=== PATIENT | male | born 1945 | race Caucasian/White ===

== ENCOUNTER 2016-07-02 13:32 | Observation (INO) ==
[2016-07-02] MEDS ORDERED: Aspirin 81 MG TAB.CHEW PO ONE (13:34)
[2016-07-02 14:01] LABS: Basophils % 0.6 %; Eosinophils # 0.1 K/mcL (0.0-0.6); Eosinophils % 2.7 %; Hematocrit 38.5 % (37.5-50.1); Hemoglobin 12.1 g/dL (12.9-16.9); Immature Granulocytes % 0.4 % (0-4); Lymphocytes # 1.7 K/mcL (0.6-4.6); Lymphocytes % 34.2 %; Mean Corpuscular HGB Conc 31.4 g/dL (31.6-35.5); Mean Corpuscular Hemoglobin 26.5 pg (28.0-33.3); Mean Corpuscular Volume 84.4 fL (83.0-100.0); Mean Platelet Volume 10.6 fL (9.4-12.4); Monocytes # 0.3 K/mcL (0.0-1.3); Monocytes % 6.8 %; Neutrophils # 2.7 K/mcL (1.6-8.9); Platelet Count 239 K/mcL (140-400); Red Blood Count 4.56 M/mcL (4.19-5.50); Red Cell Distribution Width 14.3 % (11.5-14.5); Segmented Neutrophils % 55.3 %
[2016-07-02 14:15] LABS: BUN/Creatinine Ratio 11 (6-26); Blood Urea Nitrogen 11 mg/dL (8-26); Calcium 9.3 mg/dL (8.6-10.8); Carbon Dioxide 22 mEq/L (19-29); Chloride 107 mEq/L (98-109); Glucose 178 mg/dL (70-99); Osmolality,Calculated 292 (280-300); Potassium 4.4 mEq/L (3.5-4.5); Sodium 139 mEq/L (136-145); eGFR For African Americans > 60 (> 60); eGFR For Non-African Americans > 60 (> 60)
--- NOTE | 2016-07-02 14:17 | Emergency Department Note ---
Disposition Clinical Impression: Chest pain Disposition: Admitted As Inpatient Condition: Fair Time of Disposition: 15:36 Chest Pain HPI - General Chief Complaint: ED Chest Pain Stated Complaint: chest pain Time Seen by Provider: 07/02/16 13:34 Source: patient Limitations: no limitations Vital Signs Reviewed: Yes Nursing Notes Reviewed: Yes - History of Present Illness HPI Narrative: Patient is a 70-year-old male who presents to [facility] ED with a chief complaint of central substernal chest pain. States his symptoms started around noon today. Describes as a heavy feeling. States it continued until he was given a nitroglycerin tablet by EMS and his chest pain resolved within a few minutes. Admits to some nausea, no vomiting. Denies any prior heart attack though he did have 3 stents placed back in 2012. He last had a stress test approximately 6 months ago and states that looked good. Patient does have a history of type 2 diabetes on metformin, hypertension, hyperlipidemia. Patient is asymptomatic at this time and states he would like to go home. Pt complaint: chest pain Onset (ago): hour(s) Duration: constant Onset: during rest Pain Location: substernal Severity: none Severity scale (1-10): 0 Quality: tightness Pain Radiation: none Improves with: nitroglycerin Worsens with: nothing Associated symptoms: Denies: vomiting, diaphoresis, dyspnea Treatments prior to arrival chest pain: aspirin, nitroglycerin, oxygen - Related Data Home Medications Medication Instructions Recorded Confirmed Acetaminophen [Tylenol] 1,000 mg PO BID 10/23/15 07/02/16 Amlodipine [Norvasc] 5 mg PO DAILY 10/23/15 07/02/16 Aspirin [Adult Low Dose Aspirin EC] 81 mg PO DAILY 10/23/15 07/02/16 Budesonide/Formoterol 160/4.5 2 puff IH BID 10/23/15 07/02/16 [Symbicort 160/4.5] Cetirizine HCl [Zyrtec] 10 mg PO DAILY 10/23/15 07/02/16 Doxazosin [Cardura] 4 mg PO DAILY 10/23/15 07/02/16 Furosemide [Lasix] 40 mg PO DAILY 10/23/15 07/02/16 Glimepiride [Amaryl] 1 mg PO DAILY 10/23/15 07/02/16 Lisinopril [Zestril] 40 mg PO BID 10/23/15 07/02/16 Lovastatin 10 mg PO HS 10/23/15 07/02/16 Metformin HCl [Glucophage] 1,000 mg PO BID 10/23/15 07/02/16 Metoprolol Tartrate [Lopressor] 100 mg PO BID 10/23/15 07/02/16 Montelukast [Singulair] 10 mg PO DAILY 10/23/15 07/02/16 Orphenadrine Citrate 100 mg PO BID PRN 10/23/15 07/02/16 Potassium Chloride [K-Tab ER] 10 meq PO DAILY 10/23/15 07/02/16 Oxycodone HCl/Acetaminophen 1 tab PO Q4-6H PRN 07/02/16 07/02/16 [Percocet 5-325 mg Tablet] Tizanidine HCl [Zanaflex] 4 mg PO TID PRN 07/02/16 07/02/16 Previous Rx's Medication Instructions Recorded Docusate [Colace] 100 mg PO BID #30 capsule 10/23/15 Omeprazole [PriLOSEC] 20 mg PO BID #28 capsule. 07/03/16 Allergies Allergy/AdvReac Type Severity Reaction Status Date / Time naproxen Allergy Anaphylaxis Verified 07/02/16 15:31 Sulfa (Sulfonamide Allergy Hives Verified 01/30/15 10:09 Antibiotics) All systems ED: reviewed and negative except as stated. Chest Pain PMH - Past Medical History Medical history: Reports: asthma, CHF, coronary artery disease, diabetes, GERD, GI bleed, hyperlipidemia, hypertension, peripheral artery disease Surgical history: Reports: sinus surgery, other Psychiatric history: Reports: no psych history - Social History Smoking Status: Never smoker Alcohol use: Reports: none Drug use: Reports: none Physical Exam - General Limitations: no limitations General appearance: alert, in no apparent distress - Head Head exam: atraumatic, normocephalic, normal inspection - Eye Eye exam: Present: normal appearance, PERRL, EOMI - ENT ENT exam: normal exam, normal oropharynx, mucous membranes moist - Neck Neck exam: Present: normal inspection, full ROM, trachea midline - Chest Chest inspection: Present: normal inspection, symmetric chest wall rise - Respiratory Respiratory exam: Present: normal lung sounds bilaterally - Cardiovascular Cardiovascular exam: Present: regular rate, normal rhythm, normal heart sounds - Abdominal Exam Abdominal exam: Present: soft, Non-Tender. Absent: tenderness, distention, guarding, rebound, rigidity - Extremities Exam Extremities exam: Present: normal inspection, full ROM. Absent: tenderness, pedal edema - Back Exam Back exam: Present: normal inspection, full ROM. Absent: tenderness - Neurological Exam Neurological exam: Present: alert, oriented X3 - Psychiatric Psychiatric exam: Present: normal affect, normal mood - Skin Skin exam: Present: warm, dry, intact, normal color Course Course Narrative: Patient seen and examined. Chest pain that is resolved at this point. He does have cardiac history with 3 stents. Cardiopulmonary workup initiated. We will give him another aspirin since he just had a couple baby aspirin at home. - Reevaluation(s) Reevaluation #1: Lab workup appears unremarkable. There is new signs of a prominent Q-wave in 2 and aVF. We will admit patient to hospital for chest pain rule out ACS. I spoke with the hospitalist Dr. Linda who has accepted him for admission. Time: 15:36 Vital Signs Temperature 98.5 F 07/02/16 13:35 Pulse Rate 65 07/02/16 13:35 Respiratory Rate 16 07/02/16 13:35 Blood Pressure 140/85 07/02/16 13:35 O2 Sat by Pulse Oximetry 96 07/02/16 13:35 Temperature 97.3 F L 07/03/16 10:57 Pulse Rate 66 07/03/16 10:57 Respiratory Rate 16 07/03/16 10:57 Blood Pressure 146/89 07/03/16 10:57 O2 Sat by Pulse Oximetry 93 L 07/03/16 10:57 Oxygen Delivery Oxygen Delivery Nasal Cannula Chest Pain - Medical Records Medical records reviewed: Yes I reviewed the patient's medical records. - Lab Data Lab results reviewed: Yes I reviewed the patient's lab results. Result diagrams: 07/03/16 01:18 07/03/16 01:18 Lab Results 07/02/16 07/02/16 07/02/16 Range/Units 13:40 13:40 13:40 WBC 4.9 (4.3-11.1) K/mcL RBC 4.56 (4.19-5.50) M/mcL Hgb 12.1 L (12.9-16.9) g/dL Hct 38.5 (37.5-50.1) % MCV 84.4 (83.0-100.0) fL MCH 26.5 L (28.0-33.3) pg MCHC 31.4 L (31.6-35.5) g/dL RDW 14.3 (11.5-14.5) % Plt Count 239 (140-400) K/mcL MPV 10.6 (9.4-12.4) fL Immature Gran % 0.4 (0-4) % Seg Neutrophils % 55.3 % Lymphocytes % 34.2 % Monocytes % 6.8 % Eosinophils % 2.7 % Basophils % 0.6 % Neutrophils # 2.7 (1.6-8.9) K/mcL Lymphocytes # 1.7 (0.6-4.6) K/mcL Monocytes # 0.3 (0.0-1.3) K/mcL Eosinophils # 0.1 (0.0-0.6) K/mcL Basophils # 0.0 (0.0-0.2) K/mcL Sodium 139 (136-145) mEq/L Potassium 4.4 (3.5-4.5) mEq/L Chloride 107 (98-109) mEq/L Carbon Dioxide 22 (19-29) mEq/L BUN 11 (8-26) mg/dL Creatinine 1.02 (0.72-1.25) mg/dL Est GFR ( Amer) > 60 (> 60) Est GFR (Non-Af Amer) > 60 (> 60) BUN/Creatinine Ratio 11 (6-26) Glucose 178 H (70-99) mg/dL Calculated Osmolality 292 (280-300) Calcium 9.3 (8.6-10.8) mg/dL Troponin I 0.01 (0-0.03) ng/mL - Radiology Data Radiology results reviewed: Yes I reviewed the patient's radiology results. - EKG Data EKG attestation: Yes I reviewed and interpreted this EKG. EKG results narrative: EKG done at 1334 shows sinus bradycardia with a rate of 59 beats per minute. No acute ST elevation or depression. Occasional PVCs noted. Prominent Q-wave in lead 2 and 3. Normal axis. Q wave is new when compared with prior EKG done 10/25/2015. Heart Score - Score History: Moderately Suspicious EKG: Non Specific repolarisation Disturbance Age: Greater than 65 Risk Factors: Equal/Greater than 3 risk factor or history of atherosclerotic disease Troponin: Less than normal limit HEART Score Total: 6 Attestation Statement - Attestation Attestation: I examined this patient and my medical decision-making was reviewed with the Resident Physician. I agree with the documented findings, disposition and treatment plan as described except to the extent set forth below. Pt w h/o CAD S/P stents with CP that is fairly typical for ischmic pain. Pain- free, initial troponin negative. Admit for further eval.
[2016-07-02] MEDS ORDERED: Acetaminophen 325 MG TABLET PO PRN (16:30)
--- NOTE | 2016-07-02 17:15 | Internal Med History&Physical ---
Date of Encounter: 07/02/16 Time of Encounter: 16:30 Assessment and Plan (1) Chest pain Current visit: Yes Status: Acute Atypical chest pain, to consider ECS. Telemetry monitoring, trend troponins. Continue aspirin, beta jing and statin. Echocardiogram from July 2015 shows preserved EF with no significant abnormalities. Nuclear stress test from August 2015 shows no evidence of ischemia. We will repeat echocardiogram and stress test. Qualifiers: Chest pain type: precordial chest pain Qualified Code(s): R07.2 - Precordial pain (2) Essential hypertension Current visit: Yes Status: Chronic Blood pressure well controlled. Resume home medications. (3) Diabetes mellitus Current visit: Yes Status: Chronic Accu-Chek blood glucose monitoring with sliding scale insulin as needed. Patient reports good blood sugar control at home. Diabetic diet. 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 transplanted heart: [place] heart Associated angina: without angina Qualified Code(s): I25.10 - Atherosclerotic heart disease of [place] coronary artery without angina pectoris (5) Hyperlipidemia Current visit: Yes Status: Chronic Qualifiers: Hyperlipidemia type: unspecified Qualified Code(s): E78.5 - Hyperlipidemia , unspecified (6) Asthma Current visit: Yes Status: Chronic Qualifiers: Asthma severity: mild intermittent Asthma complication type: uncomplicated Qualified Code(s): J45.20 - Mild intermittent asthma, uncomplicated Internal Medicine - H&P: HPI Chief complaint: Chest pain Admitted From: Emergency Dept Plans for Post Hospital Care: Home History of present illness: Mr. Amador is a 70 year old male with history of coronary artery disease status post stents, hypertension and diabetes, presents with complaints of retrosternal chest pain. He reports pressure-like chest pain that started around known today while he was watching television, 8/10 in intensity, nonradiating, associated with some dizziness and difficulty breathing and nausea. No diaphoresis, vomiting, syncope, palpitations. His pain was constant until he was given nitroglycerin in the emergency room, which relieved the pain. No similar previous episodes, had stents placed in 2012 and has been doing well since then. No exertional dyspnea or chest pain at baseline. Past Med Surg Social Fam HX - Past Medical History Medical history: asthma, CHF, coronary artery disease, diabetes, GERD, GI bleed , hyperlipidemia, hypertension Psychiatric history: no psych history - Past Surgical History Surgical History: sinus surgery, other (hemorrhoidectomy) - Social History Smoking Status: Former smoker Smokeless Tobacco Status: No Alcohol use: none Drug use: none Occupational status: retired Current living situation: Home, With Family Activity Level: Independent ambulation Recent Out of Country Travel Within the Last 8 Weeks: No Exposure or Possible Exposure to Illness During Travel: No - Family History Mother Living Status: Age at : 77 Cause of : Heart and Kidney problems Hx Family Cardiac Disorders: Yes Hx Family Respiratory Disorders: No Hx Family Cancer: No Hx Family GI Disorders: No Hx Family Genitourinary Disorders: Yes Hx Family Endocrine Disorder: Yes Hx Family Musculoskeletal Disorders: No Hx Family Neuromuscular Disorders: No Hx Family Neurologic Disorders: No Hx Family HEENT Disorders: No Hx Family Autoimmune Disorders: No Hx Family Reproductive Disorders: No Hx Family Psychosocial Disorders: No Hx Family Medical Disorders: No Internal Medicine - H&P: Meds Acetaminophen [Tylenol] 1,000 mg PO BID 10/23/15 [History] Amlodipine [Norvasc] 5 mg PO DAILY 10/23/15 [History] Aspirin [Adult Low Dose Aspirin EC] 81 mg PO DAILY 10/23/15 [History] Budesonide/Formoterol 160/4.5 [Symbicort 160/4.5] 2 puff IH BID 10/23/15 [ History] Cetirizine HCl [Zyrtec] 10 mg PO DAILY 10/23/15 [History] Docusate [Colace] 100 mg PO BID #30 capsule 10/23/15 [Rx] Doxazosin [Cardura] 4 mg PO DAILY 10/23/15 [History] Furosemide [Lasix] 40 mg PO DAILY 10/23/15 [History] Glimepiride [Amaryl] 1 mg PO DAILY 10/23/15 [History] Lisinopril [Zestril] 40 mg PO BID 10/23/15 [History] Lovastatin 10 mg PO HS 10/23/15 [History] Metformin HCl [Glucophage] 1,000 mg PO BID 10/23/15 [History] Metoprolol Tartrate [Lopressor] 100 mg PO BID 10/23/15 [History] Montelukast [Singulair] 10 mg PO DAILY 10/23/15 [History] Omeprazole [PriLOSEC] 40 mg PO DAILY 10/23/15 [History] Orphenadrine Citrate 100 mg PO BID PRN 10/23/15 [History] Potassium Chloride [K-Tab ER] 10 meq PO DAILY 10/23/15 [History] Oxycodone HCl/Acetaminophen [Percocet 5-325 mg Tablet] 1 tab PO Q4-6H PRN [History] Tizanidine HCl [Zanaflex] 4 mg PO TID PRN 07/02/16 [History] Allergies naproxen Allergy (Verified 07/02/16 15:31) Anaphylaxis Sulfa (Sulfonamide Antibiotics) Allergy (Verified 01/30/15 10:09) Hives All Systems PM: A 10-system review of systems was performed and is negative for pertinent findings except as documented above in the HPI. - Constitutional Constitutional: no chills, no fever(s), no night sweats - EENT Eyes: no change in vision, no discharge, no pain, no photophobia Ears: no ear discharge, no ear pain, no tinnitus Nose, mouth and throat: no dysphagia, no nasal discharge, no neck pain, no sore throat - Cardiovascular Cardiovascular ROS IM: chest pain, dyspnea, lightheadedness - Respiratory Respiratory: no cough, no dyspnea, no wheezing, no excessive phlegm production - Gastrointestinal Gastrointestinal: no abdominal pain, no diarrhea, no hematemesis, no hematochezia, no melena, no nausea, no vomiting - Musculoskeletal Musculoskeletal ROS IM: no numbness, no tingling - Integumentary Integumentary IM: no rash, no unusual bruising - Neurological Neurological ROS: no confusion, no convulsions, no focal weakness, no numbness, no tingling, no tremor(s) - Hematologic/Lymphatic Hematologic/Lymphatic: no easy bruising - Constitutional Vitals: Temp Pulse Resp BP Pulse Ox 98.5 F 58 16 126/91 96 07/02/16 13:35 07/02/16 15:30 07/02/16 15:48 07/02/16 15:48 07/02/16 15:30 General appearance: Present: A&O X 3, answers questions appropriately - Head Head exam: Present: atraumatic, normocephalic - Neck Neck exam general surgery: Present: supple, trachea midline. Absent: lymphadenopathy - Respiratory Respiratory exam: Present: CTAB. Absent: accessory muscle use, rales, rhonchi, wheezes - Cardiovascular Cardiovascular exam: Present: RRR, +S1, +S2. Absent: diastolic murmur, gallop, rubs, systolic murmur - GI/Abdominal GI/Abdominal exam: Present: normal bowel sounds, soft (obese and nontender), no peritoneal signs. Absent: distended, tenderness - Extremities Exam Extremities exam: Present: full ROM, warm, radial pulses palpable and symetrical. Absent: calf tenderness, cyanotic, pedal edema - Neurological Exam Neurological exam: Present: CN II-XII intact, oriented X3, no focal deficits. Absent: pronater drift, facial droop, speech deficit - Skin Skin exam: Present: dry, intact Internal Med - H&P Results - Labs CBC & Chem 7: 07/02/16 13:40 07/02/16 13:40 - EKG Data -: EKG Interpreted by Myself EKG shows normal: sinus rhythm Rate: bradycardia
[2016-07-02] MEDS: *HR* Metformin 500 MG TABLET PO SCH (17:24)
[2016-07-02] MEDS ORDERED: tiZANidine 4 MG TABLET PO PRN (17:53)
[2016-07-02] MEDS: Budesonide/Formoterol 160/4.5 MDI IH SCH (20:56)
[2016-07-02] MEDS: Metoprolol 100 MG TABLET PO SCH (21:05)
[2016-07-02] MEDS: Lisinopril 20 MG TABLET PO SCH (21:13)
[2016-07-03 01:47] LABS: Basophils % 0.5 %; Eosinophils # 0.2 K/mcL (0.0-0.6); Eosinophils % 2.5 %; Hematocrit 35.9 % (37.5-50.1); Hemoglobin 11.4 g/dL (12.9-16.9); Immature Granulocytes % 0.5 % (0-4); Immature Platelets 4.8 % (1.1-6.1); Lymphocytes # 1.9 K/mcL (0.6-4.6); Lymphocytes % 32.1 %; Mean Corpuscular HGB Conc 31.8 g/dL (31.6-35.5); Mean Corpuscular Hemoglobin 26.9 pg (28.0-33.3); Mean Corpuscular Volume 84.7 fL (83.0-100.0); Monocytes # 0.4 K/mcL (0.0-1.3); Monocytes % 6.8 %; Neutrophils # 3.4 K/mcL (1.6-8.9); Platelet Count 233 K/mcL (140-400); Red Blood Count 4.24 M/mcL (4.19-5.50); Red Cell Distribution Width 14.3 % (11.5-14.5); Segmented Neutrophils % 57.6 %
[2016-07-03 02:01] LABS: BUN/Creatinine Ratio 10 (6-26); Blood Urea Nitrogen 10 mg/dL (8-26); Calcium 9.3 mg/dL (8.6-10.8); Carbon Dioxide 23 mEq/L (19-29); Chloride 109 mEq/L (98-109); Chol/HDL Ratio 3.8 (0-4.9); Cholesterol 121 mg/dL (< 200); Glucose 115 mg/dL (70-99); HDL Cholesterol 32 mg/dL (40-59); LDL Cholesterol,Calculated 42 mg/dL (0-99); Osmolality,Calculated 292 (280-300); Potassium 4.2 mEq/L (3.5-4.5); Sodium 141 mEq/L (136-145); Triglycerides 236 mg/dL (< 150); eGFR For African Americans > 60 (> 60); eGFR For Non-African Americans > 60 (> 60)
[2016-07-03] MEDS ORDERED: Regadenoson 0.4 MG/5 ML SYRINGE IVP ONE (07:04)
[2016-07-03] MEDS ORDERED: NON-FORMULARY MEDICATION 1 EACH EACH (Omeprazole [Prilosec] 40 MG) PO SCH (07:30)
[2016-07-03] MEDS ORDERED: *HR* Glimepiride 2 MG TABLET PO SCH (08:00)
[2016-07-03] MEDS ORDERED: amLODIPine 5 MG TABLET PO SCH (09:00)
[2016-07-03] MEDS ORDERED: Aspirin Enteric Coated 81 MG Tablet PO SCH (09:00)
[2016-07-03] MEDS ORDERED: Furosemide 40 MG TABLET PO SCH (09:00)
--- NOTE | 2016-07-03 10:12 | Electrocardiograph Report ---
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
[2016-07-03] MEDS: Budesonide/Formoterol 160/4.5 MDI IH SCH (10:50)
--- NOTE | 2016-07-03 10:53 | Nuclear Medicine Stress Report ---
Regadenoson Nuclear Stress Name: Kishore Amador Date of Study: 07/03/2016 Date: 1945 Ht: 69.0 in Medical Record#: [id number] Age: 70 Wt: 247.0 lb Gender: Male Order #: [id number] Location: [facility] Room: [facility] Supervising Provider: Jennifer Negrete CNP Reading Physician: Rj Alvarado MD, [facility] Ordering Physician: Fariba Panchal CNP Primary Care Physician: Tera Ray DO Stress Technologist: Keri Jacob, IT AUDITOR, CCT, CPFT Union Steward: Angeles Vora Indications: Coronary Artery Disease, Chest Pain Impression: Occasional PVCs noted during stress. No ischemic ECG changes with regadenoson. Gated LVEF = 61%. Perfusion imaging was negative for ischemia or infarct. History: Hypertension Diabetes Hypercholesteremia Prior PCI Stress Test Summary: Stress Test Type: Pharmacologic Regadenoson 0.4mg/5ml given IV Baseline Information: Initial Heart Rate: 69 Blood Pressure: 136/78 Stress Information: Test Terminated Due to (primary): As per protocol Maximum Blood Pressure: 138/68 Maximum Heart Rate: 93 Percent Maximum Heart Rate Achieved: 61 Double Product: [id number] Symptoms: Shortness of breath Nuclear Summary: SPECT myocardial perfusion imaging using Tc99m Sestamibi given intravenously was performed at rest and following cardiac stress testing. The resting images were obtained following initial dose of 11.0 mCi. Following stress an additional dose of 34.1 mCi was given at peak exercise or 30 seconds post regadenoson infusion. Findings: Stress Note * Resting ECG demonstrated normal sinus rhythm. * No baseline arrhythmias were noted. * Patient had no chest pain during stress. * Occasional PVCs noted during stress. * No ischemic ECG changes with regadenoson. Hemodynamic responses * Normal hemodynamic responses to pharmacologic stress. Study Quality * Study quality is average. Gated EF % * Gated LVEF = 61%. Left Ventricle * The left ventricle is not dilated. * Normal Segmental Perfusion in rest. * Normal segmental perfusion in stress. * Inferior artifact noted. TID * No evidence of transient ischemic dilatation. Updated by Rj Alvarado MD, [facility] on 07/03/2016 10:45:43 AM electronically signed on 07/03/2016 10:46:54 AM with status of Final
[2016-07-03] MEDS: Metoprolol 100 MG TABLET PO SCH (10:58)
[2016-07-03] MEDS: *HR* Metformin 500 MG TABLET PO SCH (10:58)
[2016-07-03 10:59] VITALS: BP 146/89
[2016-07-03] MEDS: Lisinopril 20 MG TABLET PO SCH (11:00)
--- NOTE | 2016-07-03 14:04 | ECHO - Doppler Report ---
Echocardiogram Name: Kishore Amador Date of Study: 07/03/2016 Date: 1945 Ht: 68.0 in Medical Record#: [id number] Age: 70 Wt: 242.0 lb Gender: Male BSA: 2.22 Order #: [id number] Location: [facility] Room #: [id number] Reading Physician: Rj Alvarado MD, [facility] Paper Goods Machine Operator: Juanita Alejandro RVT Ordering Physician: Diane Linda MD Primary Physician: Tera Ray DO Indications: Chest pain at rest Impressions: Normal left ventricular size and systolic function, LVEF 60-65%. Mild left ventricular diastolic dysfunction. Normal right ventricular size and function. Mildly dilated left atrium. No significant valvular dysfunction. Unable to estimate RVSP due to lack of TR jet. Left Ventricular Wall Motion: Rest Echo Findings All wall segments showed normal motion. Findings: Study Quality * Suboptimal echo windows. ECG Findings * Normal sinus rhythm. Left Ventricle * Normal left ventricular size and systolic function, LVEF 60-65%. * Normal LV wall thickness. * Mild left ventricular diastolic dysfunction. Right Ventricle * Normal right ventricular size and function. Left Atrium * Mildly dilated left atrium. Right Atrium * Normal right atrial size. Aorta * Normally sized aortic root. Pericardium * There is no pericardial effusion present. IVC * The IVC is not dilated. Aortic Valve * Trileaflet aortic valve. * Mild-moderately sclerotic aortic valve leaflets. * No aortic stenosis. * No aortic regurgitation. Mitral Valve * Normal mitral valve structure. * No mitral stenosis. * Trace mitral regurgitation. Tricuspid Valve * Normal tricuspid valve structure. * No tricuspid stenosis. * Trace tricuspid regurgitation. * Unable to estimate RVSP due to lack of TR jet. Pulmonic Valve * Normal pulmonic valve structure. * No pulmonic stenosis. * Trace pulmonic regurgitation. History Hypertension Diabetes Hypercholesteremia Family History of CAD History of CAD/PTCA 12/17/2014 a Previous Echo was performed. Measurements: BP: 143/ 85 2D Normal Values RVIDd: 3.70 cm IVSd: .90 cm 0.6 - 1.0 cm LVIDd: 5.20 cm 3.7 - 5.6 cm LVPWd: 1.00 cm 0.6 - 1.1 cm LVIDs: 3.70 cm 1.5 - 3.6 cm AO: 3.80 cm < 4.0 cm LA volume: 75 Mitral Valve Peak E:.95 m/sec Peak A:1.32 m/sec E/A Ratio:0.7 Updated by Rj Alvarado MD, [facility] on 07/03/2016 2:00:03 PM electronically signed on 07/03/2016 2:01:00 PM with status of Final Wall Motion Lares: 1=Normal, 2=Hypokinesis, 3=Akinesis, 4=Dyskinesis, 5=Aneurysmal, 6=Hyperkinetic, X=Not Visualized (Blank)=Missing
--- NOTE | 2016-07-03 14:19 | Discharge Summary ---
Date of Encounter: 07/03/16 Time of Encounter: 14:00 - Discharge Diagnosis (1) Chest pain Priority: Primary Status: Resolved Comments: Patient denied chest pain on day of discharge. Chest x-ray negative. Stress test negative. Echocardiogram unremarkable. ACS ruled out. In further discussion with the patient, he states that his reflux is not controlled, suspect esophageal spasm which is consistent with his relief of pain with nitroglycerin given in the emergency room. Will double up his PPI for 2 weeks and have follow-up outpatient. Qualifiers: Chest pain type: precordial chest pain Qualified Code(s): R07.2 - Precordial pain (2) Esophageal spasm Priority: Primary Status: Suspected (3) Acid reflux Priority: Secondary Status: Chronic (4) Diastolic heart failure Priority: Secondary Status: Chronic Comments: Diastolic heart failure. Not an acute exacerbation. Euvolemic on examination. Patient denied shortness of breath throughout this admission. Echocardiogram revealing mild diastolic dysfunction, he is on Lasix at home, continue current dosage. (5) Asthma Priority: Secondary Status: Chronic Comments: No acute exacerbation. Patient denies shortness of breath above his norm. Qualifiers: Asthma severity: mild intermittent Asthma complication type: uncomplicated Qualified Code(s): J45.20 - Mild intermittent asthma, uncomplicated (6) Coronary artery disease Priority: Secondary Status: Chronic Qualifiers: Coronary Disease-Associated Artery/Lesion type: koi artery [place] vs. transplanted heart: koi heart Associated angina: without angina Qualified Code(s): I25.10 - Atherosclerotic heart disease of koi coronary artery without angina pectoris (7) Diabetes mellitus Priority: Secondary Status: Chronic Comments: Controlled, A1c 6.5%. Recommend continue follow-up outpatient. Qualifiers: Diabetes mellitus type: type 2 Diabetes mellitus complication status: with unspecified complications Diabetes mellitus intermediate insulin use: without intermediate use Qualified Code(s): E11.8 - Type 2 diabetes mellitus with unspecified complications (8) Essential hypertension Priority: Secondary Status: Chronic Comments: Controlled, borderline hypertensive at times however patient became agitated at time of discharge stating he really had to go home to take care of his . No adjustments to his medications at this time, recommend daily blood pressure checks at home, keeping a log, and following up outpatient. (9) Hyperlipidemia Priority: Secondary Status: Chronic Comments: Lipid panel unremarkable except for slightly elevated triglycerides. Recommend low-cholesterol diet and continue statin. Follow up outpatient. Qualifiers: Hyperlipidemia type: unspecified Qualified Code(s): E78.5 - Hyperlipidemia , unspecified - Discharge Medications Prescriptions: Omeprazole [PriLOSEC] 20 mg PO BID #28 capsule. Home Medications: Acetaminophen [Tylenol] 1,000 mg PO BID 10/23/15 [History] Amlodipine [Norvasc] 5 mg PO DAILY 10/23/15 [History] Aspirin [Adult Low Dose Aspirin EC] 81 mg PO DAILY 10/23/15 [History] Budesonide/Formoterol 160/4.5 [Symbicort 160/4.5] 2 puff IH BID 10/23/15 [ History] Cetirizine HCl [Zyrtec] 10 mg PO DAILY 10/23/15 [History] Docusate [Colace] 100 mg PO BID #30 capsule 10/23/15 [Rx] Doxazosin [Cardura] 4 mg PO DAILY 10/23/15 [History] Furosemide [Lasix] 40 mg PO DAILY 10/23/15 [History] Glimepiride [Amaryl] 1 mg PO DAILY 10/23/15 [History] Lisinopril [Zestril] 40 mg PO BID 10/23/15 [History] Lovastatin 10 mg PO HS 10/23/15 [History] Metformin HCl [Glucophage] 1,000 mg PO BID 10/23/15 [History] Metoprolol Tartrate [Lopressor] 100 mg PO BID 10/23/15 [History] Montelukast [Singulair] 10 mg PO DAILY 10/23/15 [History] Orphenadrine Citrate 100 mg PO BID PRN 10/23/15 [History] Potassium Chloride [K-Tab ER] 10 meq PO DAILY 10/23/15 [History] Oxycodone HCl/Acetaminophen [Percocet 5-325 mg Tablet] 1 tab PO Q4-6H PRN [History] Tizanidine HCl [Zanaflex] 4 mg PO TID PRN 07/02/16 [History] Omeprazole [PriLOSEC] 20 mg PO BID #28 capsule. 07/03/16 [Rx] Allergies/Adverse Reactions: Allergies naproxen Allergy (Verified 07/02/16 15:31) Anaphylaxis Sulfa (Sulfonamide Antibiotics) Allergy (Verified 01/30/15 10:09) Hives Procedures/tests Complete & Pending: Procedures Performed prior 72 hours Category Date Time Status NM camelia perf SPECT multi [NM] Routine Exams 07/02/16 16:33 Taken EV echocardiogram Routine Y 07/03/16 16:33 Completed SP pharm nuclear stress Routine Y 07/03/16 07:30 Completed Date of admission: 07/02/16 15:12 Primary care physician: Tera Ray DO Discharging clinician: Fariba Panchal Anticipated date of discharge: 07/03/16 - Patient Status Disposition: Home, Self-Care Condition: Fair Functional capacity at discharge: independent ambulation Overall status at discharge: patient is back to baseline - Discharge Instructions Follow Up With: Tera Ray DO [Primary Care Provider] - 07/14/16 11:30 am Additional Instructions: Follow-up with primary care provider as scheduled - Diet and Activity Activity: increase activity as tolerated Diet: diabetic diet, low fat, low cholesterol, low salt diet, other (Fluid restriction 1800 mL per day) Hospital course: Mr. Amador is a 70 year old male with past medical history of CAD status post stents, chronic diastolic heart failure on Lasix, hypertension, diabetes. Patient presented to the emergency room chief complaint retrosternally located chest pain pressure-like that started on the day of presentation while he was watching television. It did not radiate and he did experience shortness of breath and nausea. He denied diaphoresis, vomiting, syncope, or palpitations. Patient's pain was constant until he was given nitroglycerin in the emergency department which he states relieved his pain. Workup in the emergency department unremarkable. Chest x-ray negative. Troponins negative. Patient was admitted to the hospitalist service for further evaluation and management. Patient had an echocardiogram that was unremarkable with ejection fraction of 60 -65% revealed mild diastolic dysfunction. Patient was euvolemic on examination throughout this admission and he denied shortness of breath. Continue home dosage of Lasix. Patient also had a nuclear stress test that was negative for ischemia or infarct. Patient denied chest pain on day of discharge. ACS ruled out. In further discussion with the patient, he states that his reflux is not controlled, suspect esophageal spasm as the culprit which is consistent with his relief of pain with nitroglycerin given in the emergency room. Will double up his PPI for 2 weeks and have follow-up outpatient. he was discharged home in stable condition. ITS Impressions Chest X-Ray 07/02/16 13:34 IMPRESSION: No acute process. D/ / John Mason MD / John Mason MD Interpreting Provider: John Mason MD Echocardiogram impressions: Normal left ventricular size and systolic function, LVEF 60-65%. Mild left ventricular diastolic dysfunction. Normal right ventricular size and function. Mildly dilated left atrium. No significant valvular dysfunction. Unable to estimate RVSP due to lack of TR jet. Nuclear stress test impression: Occasional PVCs noted during stress. No ischemic ECG changes with regadenoson. Gated LVEF equals 61%. Perfusion imaging was negative for ischemia or infarct. - Time Spent with Patient Total time spent providing and/or coordinating discharge services: - Constitutional Vitals: Temp Pulse Resp BP Pulse Ox 97.3 F L 66 16 146/89 93 L 07/03/16 10:57 07/03/16 10:57 07/03/16 10:57 07/03/16 10:57 07/03/16 10:57 General appearance: Present: A&O X 3, pleasant, no acute distress, answers questions appropriately - Head Head exam: Present: atraumatic, normocephalic - Eye Eye exam: Present: PERRL, conjuntiva pink, sclera anicteric Pupils: Present: PERRL - Neck Neck exam general surgery: Present: supple, trachea midline. Absent: lymphadenopathy - Respiratory Respiratory exam: Present: CTAB. Absent: accessory muscle use, rales, respiratory distress, rhonchi, wheezes - Cardiovascular Cardiovascular exam: Present: RRR, +S1, +S2. Absent: diastolic murmur, gallop, rubs, systolic murmur - GI/Abdominal GI/Abdominal exam: Present: normal bowel sounds, soft, no peritoneal signs. Absent: distended, tenderness - Extremities Exam Extremities exam: Present: warm, radial pulses palpable and symetrical. Absent : calf tenderness, cyanotic, pedal edema - Neurological Exam Neurological exam: Present: alert, CN II-XII intact, normal gait, oriented X3, no focal deficits, strengths equal and symetr throughout. Absent: pronater drift, facial droop, speech deficit - Skin Skin exam: Present: dry, intact, normal color, warm
== END 2016-07-03 14:43 | disposition home or self-care (01) ==
LOC: EMEROO 13:32 → 3BNU 13:32
PROVIDERS: ADMIT Nurse Practitioner Family; ATTEND Nurse Practitioner Family

== ENCOUNTER 2018-01-24 15:40 | Observation (INO) ==
[2018-01-24] MEDS ORDERED: Aspirin 81 MG TAB.CHEW PO ONE (15:54)
--- NOTE | 2018-01-24 15:55 | Emergency Department Note ---
Disposition Clinical Impression: Unstable angina pectoris Chest pain Qualifiers: Chest pain type: unspecified Qualified Code(s): R07.9 - Chest pain, unspecified Disposition: Admitted As Inpatient Condition: Fair Time of Disposition: 15:56 General Adult HPI - General Chief complaint: ED Chest Pain Stated complaint: CP Time Seen by Provider: 01/24/18 15:52 Source: patient Mode of arrival: EMS Limitations: no limitations Nursing Notes Reviewed: Yes Vital Signs Reviewed: Yes - History of Present Illness HPI Narrative: Patient is a 72-year-old male with past medical history of 3 cardiac stents placed in 2012, hypertension, diabetes presents to the emergency department for evaluation of chest pain. The patient states this chest pain started approximately 14:15 sudden onset, pressure-like across his entire chest that lasted approximately 60 minutes and totally take a home dose of nitroglycerin and the pain resolved completely. He denies associated symptoms such as nausea , vomiting, radiation of pain, exertional component, or shortness of breath. States he feels asymptomatic at this time. Take a baby aspirin this morning. Denies history of blood clots. Does not recall last time he had a stress test or catheterization done. - Related Data Home Medications Medication Instructions Recorded Confirmed Acetaminophen [Tylenol] 1,000 mg PO BID 10/23/15 01/24/18 Aspirin [Adult Low Dose Aspirin EC] 81 mg PO DAILY 10/23/15 01/24/18 Budesonide/Formoterol 160/4.5 2 puff IH BID 10/23/15 01/24/18 [Symbicort 160/4.5] Cetirizine HCl [Zyrtec] 10 mg PO DAILY 10/23/15 01/24/18 Doxazosin [Cardura] 4 mg PO DAILY 10/23/15 01/24/18 Furosemide [Lasix] 40 mg PO DAILY 10/23/15 01/24/18 Glimepiride [Amaryl] 1 mg PO DAILY 10/23/15 01/24/18 Lovastatin 10 mg PO HS 10/23/15 01/24/18 Metformin HCl [Glucophage] 1,000 mg PO BID 10/23/15 01/24/18 Metoprolol Tartrate [Lopressor] 100 mg PO BID 10/23/15 01/24/18 Montelukast [Singulair] 10 mg PO DAILY 10/23/15 01/24/18 Orphenadrine Citrate 100 mg PO BID PRN 10/23/15 01/24/18 Potassium Chloride [K-Tab ER] 10 meq PO BID 10/23/15 01/24/18 Tizanidine HCl [Zanaflex] 4 mg PO TID PRN 07/02/16 01/24/18 Amlodipine Besylate 10 mg PO DAILY 01/24/18 01/24/18 Esomeprazole Magnesium [Nexium] 40 mg PO DAILY 01/24/18 01/24/18 Glimepiride [Amaryl] 2 mg PO DAILY 01/24/18 01/24/18 Olmesartan Medoxomil [Benicar] 40 mg PO DAILY 01/24/18 01/24/18 Previous Rx's Medication Instructions Recorded Docusate [Colace] 100 mg PO BID #30 capsule 10/23/15 Allergies Allergy/AdvReac Type Severity Reaction Status Date / Time naproxen Allergy Anaphylaxis Verified 01/24/18 15:47 Sulfa (Sulfonamide Allergy Hives Verified 01/24/18 15:47 Antibiotics) All systems ED: reviewed and negative except as stated. Review of Systems: As Per HPI Constitutional: Denies: fever, chills Cardiovascular: Reports: chest pain. Denies: palpitations, dyspnea on exertion Respiratory: Denies: cough, dyspnea, wheezes, hemoptysis, sputum production Gastrointestinal: Denies: abdominal pain, nausea, vomiting Genitourinary: Denies: urgency, dysuria Musculoskeletal: Denies: back pain, neck pain Integumentary: Denies: rash, abrasion Neurological: Denies: headache, weakness Past Medical History - Past Medical History Attestation: Yes The following information was validated with the patient. Medical history: Reports: asthma, CHF, coronary artery disease, diabetes, GERD, GI bleed, hyperlipidemia, hypertension, peripheral artery disease Surgical history: Reports: sinus surgery, other Psychiatric history: Reports: no psych history - Social History Smoking Status: Never smoker Smokeless Tobacco Status: No Alcohol use: Reports: none Drug use: Reports: none Physical Exam CONSTITUTIONAL: Well-appearing; well-nourished; A&O X 3, in no apparent distress HEAD: Normocephalic; atraumatic EYES: PERRL, no scleral icterus NOSE: The nose is normal in appearance without rhinorrhea NECK: No JVD or distended neck veins RESP: Normal chest excursion with respiration; breath sounds clear and equal bilaterally; no wheezes, rhonchi, or rales CARD: Regular rhythm, without murmurs, rub or gallop ABD: Non-distended; non-tender, soft, without rigidity, rebound or guarding,no pulsatile mass CHEST: No pain with palpation SKIN: Normal for age and race; warm and dry without diaphoresis ; no apparent lesions EXTREMITIES: Pulses are 2 plus and equal times 4 extremities, no peripheral edema or calf muscle pain Course Course Narrative: Patient has a cardiac history plan at this time is to evaluate him for cardiac like chest pain. We will undergo EKG, chest x-ray and troponin receive a full dose of aspirin is currently asymptomatic so we will hold any further nitroglycerin at this time. Heart score at this time is a moderate score given his risk factors, age and history. Patient will most likely come in for admission. Echo and Stress test on 07/03/16 that showed EF 60%, normal wall motion and no ischemia detected on stress test. 16:48 - discussed with the patient his lab work is returned and is unremarkable except for very mild hyponatremia. Discussed that his EKG is nonischemic his chest x-ray was normal. Discussed due to him being at least moderate risk plan at this time is to admit him to hospital for evaluation of his chest pain. Patient agrees with plan. He received his full dose of aspirin. Continues to remain asymptomatic. 17:27 - Discussed the patient's case with the hospitalist application architect, Dr. Villarreal and she agrees to accept the patient for CP r/o. Vital Signs Pulse Rate 62 01/24/18 15:53 Respiratory Rate 20 01/24/18 15:53 Blood Pressure 115/71 01/24/18 15:53 O2 Sat by Pulse Oximetry 93 01/24/18 15:53 Temperature 97.7 F 01/24/18 23:14 Pulse Rate 47 01/24/18 23:14 Respiratory Rate 16 01/24/18 23:14 Blood Pressure 101/55 01/24/18 23:14 O2 Sat by Pulse Oximetry 96 01/24/18 23:14 Oxygen Delivery Oxygen Delivery Room Air Medical Decision Making - Medical Records Medical records reviewed: Yes I reviewed the patient's medical records. - Lab Data Lab results reviewed: Yes I reviewed the patient's lab results. Result diagrams: 01/24/18 16:04 01/24/18 16:04 Lab Results 01/24/18 01/24/18 Range/Units 16:04 16:04 WBC 4.9 (4.3-11.1) K/mcL RBC 4.56 (4.19-5.50) M/mcL Hgb 13.7 (12.9-16.9) g/dL Hct 40.9 (37.5-50.1) % MCV 89.7 (83.0-100.0) fL MCH 30.0 (28.0-33.3) pg MCHC 33.5 (31.6-35.5) g/dL RDW 13.2 (11.5-14.5) % Plt Count 192 (140-400) K/mcL MPV 10.7 (9.4-12.4) fL Immature Gran % 0.4 (0-4) % Seg Neutrophils % 57.1 % Lymphocytes % 30.1 % Monocytes % 7.3 % Eosinophils % 4.5 % Basophils % 0.6 % Neutrophils # 2.8 (1.6-8.9) K/mcL Lymphocytes # 1.5 (0.6-4.6) K/mcL Monocytes # 0.4 (0.0-1.3) K/mcL Eosinophils # 0.2 (0.0-0.6) K/mcL Basophils # 0.0 (0.0-0.2) K/mcL Sodium 132 L (136-145) mEq/L Potassium 4.2 (3.5-5.1) mEq/L Chloride 101 (98-107) mEq/L Carbon Dioxide 24 (23-29) mEq/L BUN 23 (8-23) mg/dL Creatinine 1.24 (0.70-1.30) mg/dL Est GFR ( Amer) > 60 (> 60) Est GFR (Non-Af Amer) 58 L (> 60) BUN/Creatinine Ratio 19 (6-26) Glucose 136 H (70-105) mg/dL Calculated Osmolality 280 (280-300) Calcium 9.2 (8.6-10.3) mg/dL Troponin I < 0.03 (< 0.04) ng/mL - Radiology Data Radiology results reviewed: Yes I reviewed the patient's radiology results. Chest X-Ray 01/24/18 15:54 IMPRESSION: No acute pulmonary finding. D/ / Jostin Hector MD / Jostin Hector MD Interpreting Provider: Jostin Hectro MD - EKG Data EKG #1 EKG attestation: Yes I reviewed and interpreted this EKG. EKG results narrative: EKG done at 15:54 shows sinus rhythm at a rate of 60 bpm. Normal axis. Intervals within normal limits. No ST elevation, ST depression or Q waves present. EKG is unchanged from prior EKG done December 202016.
[2018-01-24 16:16] LABS: Basophils % 0.6 %; Eosinophils # 0.2 K/mcL (0.0-0.6); Eosinophils % 4.5 %; Hematocrit 40.9 % (37.5-50.1); Hemoglobin 13.7 g/dL (12.9-16.9); Immature Granulocytes % 0.4 % (0-4); Lymphocytes # 1.5 K/mcL (0.6-4.6); Lymphocytes % 30.1 %; Mean Corpuscular HGB Conc 33.5 g/dL (31.6-35.5); Mean Corpuscular Volume 89.7 fL (83.0-100.0); Mean Platelet Volume 10.7 fL (9.4-12.4); Monocytes # 0.4 K/mcL (0.0-1.3); Monocytes % 7.3 %; Neutrophils # 2.8 K/mcL (1.6-8.9); Platelet Count 192 K/mcL (140-400); Red Blood Count 4.56 M/mcL (4.19-5.50); Red Cell Distribution Width 13.2 % (11.5-14.5); Segmented Neutrophils % 57.1 %
--- NOTE | 2018-01-24 16:28 | Emergency Department Note ---
Disposition Clinical Impression: Unstable angina pectoris Chest pain Qualifiers: Chest pain type: unspecified Qualified Code(s): R07.9 - Chest pain, unspecified Disposition: Still a Patient Condition: Fair Forms: ED Satisfaction Letter General Adult HPI - General Chief complaint: ED Chest Pain Stated complaint: CP Time Seen by Provider: 01/24/18 15:52 Source: patient Mode of arrival: EMS Limitations: no limitations - History of Present Illness Pain Scale: 0 - Related Data Home Medications Medication Instructions Recorded Confirmed Acetaminophen [Tylenol] 1,000 mg PO BID 10/23/15 01/24/18 Aspirin [Adult Low Dose Aspirin EC] 81 mg PO DAILY 10/23/15 01/24/18 Budesonide/Formoterol 160/4.5 2 puff IH BID 10/23/15 01/24/18 [Symbicort 160/4.5] Cetirizine HCl [Zyrtec] 10 mg PO DAILY 10/23/15 01/24/18 Doxazosin [Cardura] 4 mg PO DAILY 10/23/15 01/24/18 Furosemide [Lasix] 40 mg PO DAILY 10/23/15 01/24/18 Glimepiride [Amaryl] 1 mg PO DAILY 10/23/15 01/24/18 Lovastatin 10 mg PO HS 10/23/15 01/24/18 Metformin HCl [Glucophage] 1,000 mg PO BID 10/23/15 01/24/18 Metoprolol Tartrate [Lopressor] 100 mg PO BID 10/23/15 01/24/18 Montelukast [Singulair] 10 mg PO DAILY 10/23/15 01/24/18 Orphenadrine Citrate 100 mg PO BID PRN 10/23/15 01/24/18 Potassium Chloride [K-Tab ER] 10 meq PO BID 10/23/15 01/24/18 Tizanidine HCl [Zanaflex] 4 mg PO TID PRN 07/02/16 01/24/18 Amlodipine Besylate 10 mg PO DAILY 01/24/18 01/24/18 Esomeprazole Magnesium [Nexium] 40 mg PO DAILY 01/24/18 01/24/18 Glimepiride [Amaryl] 2 mg PO DAILY 01/24/18 01/24/18 Olmesartan Medoxomil [Benicar] 40 mg PO DAILY 01/24/18 01/24/18 Previous Rx's Medication Instructions Recorded Docusate [Colace] 100 mg PO BID #30 capsule 10/23/15 Allergies Allergy/AdvReac Type Severity Reaction Status Date / Time naproxen Allergy Anaphylaxis Verified 01/24/18 15:47 Sulfa (Sulfonamide Allergy Hives Verified 01/24/18 15:47 Antibiotics) Constitutional: Denies: fever, chills Cardiovascular: Reports: chest pain. Denies: palpitations, dyspnea on exertion Respiratory: Denies: cough, dyspnea, wheezes, hemoptysis, sputum production Gastrointestinal: Denies: abdominal pain, nausea, vomiting Genitourinary: Denies: urgency, dysuria Musculoskeletal: Denies: back pain, neck pain Integumentary: Denies: rash, abrasion Neurological: Denies: headache, weakness Past Medical History - Past Medical History Medical history: Reports: asthma, CHF, coronary artery disease, diabetes, GERD, GI bleed, hyperlipidemia, hypertension, peripheral artery disease Surgical history: Reports: sinus surgery, other Psychiatric history: Reports: no psych history - Social History Smoking Status: Never smoker Smokeless Tobacco Status: No Alcohol use: Reports: none Drug use: Reports: none Physical Exam - General Limitations: no limitations General appearance: alert Course - Reevaluation(s) Reevaluation #1: ATTESTATION NOTE I examined this patient and my medical decision-making was reviewed with the Resident Physician, Melecio Naik. I agree with the documented findings, disposition and treatment plan as described except to the extent set forth below. I have personally performed a face to face evaluation on this patient. I have reviewed and agree with the care plan. Briefly: 72-year-old male history of cardiac stent 3 presents with chest pain without exertion relieved with one nitroglycerin. Patient normally has not had a take nitroglycerin for "quite some time". Within 50 minutes became pain-free. EKG shows no acute ischemic changes. Patient's heart scores moderate at 4+. Patient will be admitted. Patient will be getting aspirin screening labs chest x-ray and admission disposition which is pending. Time: 16:27 Vital Signs Pulse Rate 62 01/24/18 15:53 Respiratory Rate 20 01/24/18 15:53 Blood Pressure 115/71 01/24/18 15:53 O2 Sat by Pulse Oximetry 93 01/24/18 15:53 Temperature 98.1 F 01/24/18 15:54 Pulse Rate 58 01/24/18 16:15 Respiratory Rate 20 01/24/18 16:15 Blood Pressure 108/64 01/24/18 16:15 O2 Sat by Pulse Oximetry 92 01/24/18 16:24 Oxygen Delivery Oxygen Delivery Room Air Medical Decision Making - Lab Data Result diagrams: 01/24/18 16:04 Lab Results 01/24/18 Range/Units 16:04 WBC 4.9 (4.3-11.1) K/mcL RBC 4.56 (4.19-5.50) M/mcL Hgb 13.7 (12.9-16.9) g/dL Hct 40.9 (37.5-50.1) % MCV 89.7 (83.0-100.0) fL MCH 30.0 (28.0-33.3) pg MCHC 33.5 (31.6-35.5) g/dL RDW 13.2 (11.5-14.5) % Plt Count 192 (140-400) K/mcL MPV 10.7 (9.4-12.4) fL Immature Gran % 0.4 (0-4) % Seg Neutrophils % 57.1 % Lymphocytes % 30.1 % Monocytes % 7.3 % Eosinophils % 4.5 % Basophils % 0.6 % Neutrophils # 2.8 (1.6-8.9) K/mcL Lymphocytes # 1.5 (0.6-4.6) K/mcL Monocytes # 0.4 (0.0-1.3) K/mcL Eosinophils # 0.2 (0.0-0.6) K/mcL Basophils # 0.0 (0.0-0.2) K/mcL
[2018-01-24 16:44] LABS: BUN/Creatinine Ratio 19 (6-26); Blood Urea Nitrogen 23 mg/dL (8-23); Calcium 9.2 mg/dL (8.6-10.3); Carbon Dioxide 24 mEq/L (23-29); Chloride 101 mEq/L (98-107); Glucose 136 mg/dL (70-105); Osmolality,Calculated 280 (280-300); Potassium 4.2 mEq/L (3.5-5.1); Sodium 132 mEq/L (136-145); eGFR For Non-African Americans 58 (> 60)
[2018-01-24 16:45] LABS: Troponin I < 0.03 ng/mL (< 0.04)
[2018-01-24] MEDS ORDERED: Naloxone 0.4 MG/ML INJ IVP PRN (17:56)
[2018-01-24] MEDS ORDERED: Orphenadrine 100 MG TABLET.ER PO PRN (17:59)
[2018-01-24] MEDS ORDERED: tiZANidine 4 MG TABLET PO PRN (17:59)
--- NOTE | 2018-01-24 18:06 | Internal Med History&Physical ---
Date of Encounter: 01/24/18 Time of Encounter: 18:05 Internal Medicine - H&P: HPI Chief complaint: Chest pain Admitted From: Home Plans for Post Hospital Care: Home History of present illness: Mr. Amador is a 72 year old male with history of CAD w/ 3 stents, heart failure , HTN and DM. Patient had palpitations in 2012. The patient had HC and 3 stents were placed. The patient that began to have cp (heaviness) that was very intense for an hour. Patient received an ASA, which was resolved. The patient had a stress test in 06/2016, which showed no ischemia. EF was 61% and the patient and last echo (06/2016) which showed:LVEF 60-65%, Mild left ventricular diastolic dysfunction and mildly dilated left atrium. The patient indicated dyspnea for the past 2 months. Patient has history of HF. CXR showed no acute abnormalities. The patient indicated that he also had sob with chest pain. The EKG showed SR with ?LVH. Serial cardiac enzymes. First trop is less than 0.03. If remains negative may need stress test. Past Med Surg Social Fam HX - Past Medical History Medical history: asthma, CHF, coronary artery disease, diabetes, GERD, GI bleed , hyperlipidemia, hypertension, peripheral artery disease Additional medical history: hernia Psychiatric history: no psych history - Past Surgical History Surgical History: sinus surgery, other Additional surgical history: cardiac stent x3. cardiac ablation. sinus surgery. colonoscopy - Social History Smoking Status: Never smoker Smokeless Tobacco Status: No Alcohol use: none Drug use: none - Family History Mother Living Status: Hx Family Cardiac Disorders: Yes Hx Family Respiratory Disorders: No Hx Family Cancer: No Hx Family GI Disorders: No Hx Family Endocrine Disorder: Yes Hx Family Neuromuscular Disorders: No Hx Family Neurologic Disorders: No Hx Family HEENT Disorders: No Hx Family Autoimmune Disorders: No Internal Medicine - H&P: Meds Acetaminophen [Tylenol] 1,000 mg PO BID 10/23/15 [History] Aspirin [Adult Low Dose Aspirin EC] 81 mg PO DAILY 10/23/15 [History] Budesonide/Formoterol 160/4.5 [Symbicort 160/4.5] 2 puff IH BID 10/23/15 [ History] Cetirizine HCl [Zyrtec] 10 mg PO DAILY 10/23/15 [History] Docusate [Colace] 100 mg PO BID #30 capsule 10/23/15 [Rx] Doxazosin [Cardura] 4 mg PO DAILY 10/23/15 [History] Furosemide [Lasix] 40 mg PO DAILY 10/23/15 [History] Glimepiride [Amaryl] 1 mg PO DAILY 10/23/15 [History] Lovastatin 10 mg PO HS 10/23/15 [History] Metformin HCl [Glucophage] 1,000 mg PO BID 10/23/15 [History] Metoprolol Tartrate [Lopressor] 100 mg PO BID 10/23/15 [History] Montelukast [Singulair] 10 mg PO DAILY 10/23/15 [History] Orphenadrine Citrate 100 mg PO BID PRN 10/23/15 [History] Potassium Chloride [K-Tab ER] 10 meq PO BID 10/23/15 [History] Tizanidine HCl [Zanaflex] 4 mg PO TID PRN 07/02/16 [History] Amlodipine Besylate 10 mg PO DAILY 01/24/18 [History] Esomeprazole Magnesium [Nexium] 40 mg PO DAILY 01/24/18 [History] Glimepiride [Amaryl] 2 mg PO DAILY 01/24/18 [History] Olmesartan Medoxomil [Benicar] 40 mg PO DAILY 01/24/18 [History] 3 Allergy/AdvReac Type Severity Reaction Status Date / Time naproxen Allergy Anaphylaxis Verified 01/24/18 15:47 Sulfa (Sulfonamide Allergy Hives Verified 01/24/18 15:47 Antibiotics) All Systems PM: A 10-system review of systems was performed and is negative for pertinent findings except as documented above in the HPI. - Constitutional Constitutional: no chills, no fever(s), no night sweats - EENT Eyes: no change in vision, no discharge, no pain, no photophobia Ears: no ear discharge, no ear pain, no tinnitus Nose, mouth and throat: no dysphagia, no nasal discharge, no neck pain, no sore throat - Cardiovascular Cardiovascular ROS IM: chest pain, dyspnea (x2 months), no diaphoresis, no lightheadedness, no palpitations, no syncope - Respiratory Respiratory: no cough, no dyspnea, no wheezing, no excessive phlegm production - Gastrointestinal Gastrointestinal: no abdominal pain, no diarrhea, no hematemesis, no hematochezia, no melena, no nausea, no vomiting - Musculoskeletal Musculoskeletal ROS IM: no numbness, no tingling - Integumentary Integumentary IM: no rash, no unusual bruising - Neurological Neurological ROS: no confusion, no convulsions, no focal weakness, no numbness, no tingling, no tremor(s) - Hematologic/Lymphatic Hematologic/Lymphatic: no easy bruising - Constitutional Vitals: Temp Pulse Resp BP Pulse Ox 98.1 F 57 20 112/93 93 01/24/18 15:54 01/24/18 17:00 01/24/18 17:00 01/24/18 17:00 01/24/18 17:00 General appearance: Present: A&O X 3, answers questions appropriately - Head Head exam: Present: atraumatic, normocephalic - Eye Eye exam: Present: PERRL, conjuntiva pink, sclera anicteric Pupils: Present: PERRL - Neck Neck exam general surgery: Present: supple, trachea midline. Absent: lymphadenopathy - Respiratory Respiratory exam: Present: CTAB. Absent: accessory muscle use, rales, rhonchi, wheezes - Cardiovascular Cardiovascular exam: Present: RRR, +S1, +S2. Absent: diastolic murmur, gallop, rubs, systolic murmur - GI/Abdominal GI/Abdominal exam: Present: normal bowel sounds, soft, no peritoneal signs. Absent: distended, tenderness - Extremities Exam Extremities exam: Present: warm, radial pulses palpable and symmetrical. Absent : calf tenderness, cyanotic, pedal edema - Neurological Exam Neurological exam: Present: CN II-XII intact, oriented X3, no focal deficits. Absent: pronater drift, facial droop, speech deficit - Skin Skin exam: Present: dry, intact Internal Med - H&P Results - Labs CBC & Chem 7: 01/24/18 16:04 01/24/18 16:04 - Assessment and plan (1) Unstable angina pectoris Current Visit: Yes Status: Acute Assessment and plan: Serial cardiac troponins X3 Oxygen prn keep sat gt 92% Nitro prn Cardiac monitoring (2) Coronary artery disease Current Visit: Yes Status: Chronic Assessment and plan: Same as above Patient may need stress, if trops remain negative Qualifiers: Coronary Disease-Associated Artery/Lesion type: [place] artery [place] vs. transplanted heart: [place] heart Associated angina: without angina Qualified Code(s): I25.10 - Atherosclerotic heart disease of [place] coronary artery without angina pectoris (3) Diabetes mellitus Current Visit: No Status: Chronic Assessment and plan: DM is controlled at 136. AC/HS with mild humalog insulin coverage Qualifiers: Diabetes mellitus type: type 2 Diabetes mellitus terminal worker insulin use: without terminal worker use Diabetes mellitus complication status: with unspecified complications Qualified Code(s): E11.8 - Type 2 diabetes mellitus with unspecified complications (4) Essential hypertension Current Visit: No Status: Chronic Assessment and plan: Bp is controlled Continue home meds-metoprolol and norvasc (5) Diastolic heart failure Current Visit: No Status: Chronic Assessment and plan: Patient having difficulty breathing for the past 2 months. History of HF. BNP in am Last echo was 06/2016. EF was 60-65% CXR was negative for disease Strict I and O's Qualifiers: Heart failure chronicity: chronic Qualified Code(s): I50.32 - Chronic diastolic (congestive) heart failure - Time Spent With Patient Total time spent is greater than 50% in coordination of care (as documented) at patient's floor/unit and/or counseling patient: less than 15 minutes
[2018-01-24] MEDS ORDERED: *HR* Dextrose 50 % in Water (Syg) 50 ML SYRINGE IVP PRN (18:32)
[2018-01-24] MEDS ORDERED: D5% in Water 1,000 ML IVC PRN (18:32)
[2018-01-24] MEDS ORDERED: Dextrose Gel 15 GM/37.5 ML TUBE PO PRN ×2 (18:32)
[2018-01-24] MEDS ORDERED: Nitroglycerin 0.4 MG TAB.SUBL SL PRN (19:04)
[2018-01-24] MEDS ORDERED: Insulin LISPRO 300 UNITS/3 ML VIAL SQ SCH ×2 (21:00)
[2018-01-24] MEDS: Budesonide/Formoterol 160/4.5 MDI IH SCH (21:39)
[2018-01-25 06:16] LABS: Basophils % 0.4 %; Eosinophils # 0.2 K/mcL (0.0-0.6); Eosinophils % 4.3 %; Hemoglobin 12.8 g/dL (12.9-16.9); Immature Granulocytes % 0.4 % (0-4); Lymphocytes # 1.7 K/mcL (0.6-4.6); Lymphocytes % 35.3 %; Mean Corpuscular HGB Conc 32.8 g/dL (31.6-35.5); Mean Corpuscular Hemoglobin 29.6 pg (28.0-33.3); Mean Corpuscular Volume 90.1 fL (83.0-100.0); Mean Platelet Volume 11.4 fL (9.4-12.4); Monocytes # 0.4 K/mcL (0.0-1.3); Monocytes % 7.9 %; Neutrophils # 2.4 K/mcL (1.6-8.9); Platelet Count 176 K/mcL (140-400); Red Blood Count 4.33 M/mcL (4.19-5.50); Red Cell Distribution Width 13.3 % (11.5-14.5); Segmented Neutrophils % 51.7 %
[2018-01-25 06:36] LABS: BUN/Creatinine Ratio 18 (6-26); Blood Urea Nitrogen 20 mg/dL (8-23); Calcium 9.2 mg/dL (8.6-10.3); Carbon Dioxide 23 mEq/L (23-29); Chloride 107 mEq/L (98-107); Chol/HDL Ratio 3.9 (0-4.9); Cholesterol 128 mg/dL (< 200); Glucose 107 mg/dL (70-105); HDL Cholesterol 33 mg/dL (40-59); LDL Cholesterol,Calculated 59 mg/dL (0-99); Osmolality,Calculated 289 (280-300); Potassium 4.3 mEq/L (3.5-5.1); Sodium 138 mEq/L (136-145); Triglycerides 178 mg/dL (< 150); Troponin I < 0.03 ng/mL (< 0.04); eGFR For Non-African Americans > 60 (> 60)
[2018-01-25] MEDS: Insulin LISPRO 300 UNITS/3 ML VIAL SQ SCH ×2 (06:55→11:30)
[2018-01-25] MEDS ORDERED: Insulin LISPRO 300 UNITS/3 ML VIAL SQ SCH (07:30)
[2018-01-25] MEDS: Budesonide/Formoterol 160/4.5 MDI IH SCH (07:37)
[2018-01-25] MEDS ORDERED: amLODIPine 5 MG TABLET PO SCH (09:00)
[2018-01-25] MEDS ORDERED: Furosemide 40 MG TABLET PO SCH (09:00)
[2018-01-25] MEDS ORDERED: Loratadine 10 MG TABLET PO SCH (09:00)
[2018-01-25] MEDS ORDERED: Aspirin Enteric Coated 81 MG Tablet PO SCH (09:00)
--- NOTE | 2018-01-25 10:44 | Internal Med Progress Note ---
Hospitalist Progress Note - Encounter Date of Encounter: 01/25/18 Time of Encounter: 10:43 - Subjective Interval History: Patient seen and examined at bedside today. Continued to report intermittent midsternal chest pressure. Denies any increase of chest pressure with activity , no alleviating factors. Denies any nausea, diaphoresis. Does admit to shortness of breath and lightheadedness. - Exam Vitals: Temp Pulse Resp BP Pulse Ox 97.8 F 52 16 118/66 98 01/25/18 06:36 01/25/18 06:36 01/25/18 07:38 01/25/18 06:36 01/25/18 07:38 Exam: PHYSICAL EXAMINATION: GENERAL: The patient is a well-developed, well-nourished male in no apparent distress. He is alert and oriented x3. HEENT: Head is normocephalic and atraumatic. Extraocular muscles are intact. Pupils are equal, round, and reactive to light and accommodation. Mucous membranes moist and without lesions NECK: Supple. No carotid bruits. No lymphadenopathy or thyromegaly. LUNGS: Clear to auscultation. HEART: Regular rate and rhythm without murmur. ABDOMEN: Soft, and nondistended. Positive bowel sounds. No hepatosplenomegaly was noted. Mild abdominal tenderness to palpation left upper quadrant EXTREMITIES: Without any cyanosis, clubbing, rash, lesions or edema. NEUROLOGIC: No facial droop, slurred speech, alert and oriented 3 SKIN: No ulceration or induration present. - Assessment and Plan (1) Unstable angina pectoris Current Visit: Yes Status: Acute Assessment and Plan: 72-year-old male presenting with chest pain/heaviness described as intense lasting approximately one hour, with lightheadedness and shortness of breath. Given nitro in ED and improved Now having intermittent chest pain/heaviness. History of CAD with 3 stents placed in 2012. Status post cardiac ablation Recent echo 06/2016 which showed LVEF 60-65%, mild LV diastolic dysfunction, mildly dilated left atrium Cardiac enzymes have been trended and found to be less than 0.033 Per my review EKG shows--sinus rhythm with bundle branch block, no ST or T-wave changes concerning for ischemia lipid panel TRG--178--total cholesteroL 128--LDL 59--WWX26--xxg VLDL36-- --Given history and presentation patient will undergo ACS rule out. Obtain TTE , stress test this afternoon, continuous telemetry, daily aspirin, continue beta jing, nitroglycerin for chest pain. Get lipase as well as he is experiencing some LUQ tenderness to palpation (2) Coronary artery disease Current Visit: Yes Status: Chronic Assessment and Plan: see above (3) Diabetes mellitus Current Visit: No Status: Chronic Assessment and Plan: Blood glucose stable, continue medium sliding scale coverage (4) Essential hypertension Current Visit: No Status: Chronic Assessment and Plan: stable, continue Norvasc, Cozaar and Lopressor DVT Prophylaxis: SCDs - Time Spent with Patient Total time spent is greater than 50% in coordination of care (as documented) at patient's floor/unit and/or counseling patient: less than 15 minutes Plan of Care Discussed with: nurse Internal Medicine: Result - Labs CBC & Chem 7: 01/25/18 04:28 01/25/18 04:28 Labs: Short CBC 01/25/18 Range/Units 04:28 WBC 4.7 (4.3-11.1) K/mcL Hgb 12.8 L (12.9-16.9) g/dL Hct 39.0 (37.5-50.1) % Plt Count 176 (140-400) K/mcL Neutrophils # 2.4 (1.6-8.9) K/mcL BMP 01/25/18 04:28 Sodium 138 Potassium 4.3 Chloride 107 Carbon Dioxide 23 BUN 20 Creatinine 1.10 Glucose 107 H Calcium 9.2 Cardiac Enzymes 01/24/18 01/25/18 Range/Units 21:47 04:28 Troponin I < 0.03 < 0.03 (< 0.04) ng/mL Consult Discharge Plan - Plan Referrals: Jessa Ferrera MD [Partnered Physician] - 02/03/18 11:35 am Tera Ray DO [Primary Care Provider] - 02/23/18 1:30 pm (2) Coronary artery disease Qualifiers: Coronary Disease-Associated Artery/Lesion type: [place] artery [place] vs. 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
[2018-01-25 11:05] LABS: Lipase 40 Units/L (11-82)
[2018-01-25] MEDS ORDERED: Regadenoson 0.4 MG/5 ML SYRINGE IVP ONE (11:20)
[2018-01-25 15:31] VITALS: BP 132/76
--- NOTE | 2018-01-25 15:55 | Discharge Summary ---
- NOTES TO OUTPATIENT PROVIDER Notes to Outpatient Provider: ACS r/o--workup including stress, TTE, EKG, and serial cardiac enzymes unremarkable. No pending studies at time of discharge. Consider angina, discontinued amlodipine and started imdur. Please evaluate at follow-up for improvement of chest discomfort Orders not resulted at time of discharge: Pending orders 01/25/18 10:42 NM camelia perf SPECT multi [NM] Routine Date of Encounter: 01/25/18 Time of Encounter: 15:53 - Discharge Diagnosis (1) Unstable angina pectoris Priority: Primary Status: Acute (2) Coronary artery disease Priority: Secondary Status: Chronic Qualifiers: Coronary Disease-Associated Artery/Lesion type: [place] artery [place] vs. transplanted heart: [place] heart Associated angina: without angina Qualified Code(s): I25.10 - Atherosclerotic heart disease of [place] coronary artery without angina pectoris (3) Diabetes mellitus Priority: Secondary Status: Chronic Qualifiers: Diabetes mellitus type: type 2 Diabetes mellitus intermediate insulin use: without director long term care use Diabetes mellitus complication status: with unspecified complications Qualified Code(s): E11.8 - Type 2 diabetes mellitus with unspecified complications (4) Essential hypertension Priority: Secondary Status: Chronic Hospital course: Mr. Amador is a 72 year old male with a PMH of CAD W/3 stents, heart failure, HTN, DM. Patient reports he had 3 stents placed in 2012. He presented to [facility] ED with chest pressure described as intense lasting for approximately one hour. He was given 1 sublingual nitroglycerin in the ED and chest pressure resolved. Subsequently he was admitted for ACS rule out. EKG without any ST-T wave changes concerning for ischemia, normal sinus rhythm, serial cardiac enzymes negative and less than 0.033, TTE completed with LVEF 60%-mild LV diastolic dysfunction, normal RV structure and function, mild mitral regurgitation, mild tricuspid regurgitation, no pulmonary HTN. Stress test completed with findings negative for ischemia and negative for perfusion defect. Acute coronary syndrome ruled out. Chest discomfort likely caused by anginal events. Amlodipine discontinued at this day and patient started on 30 mg Imdur daily. Chest pain has resolved at this time. Follow hospital course. He is being discharged and has been instructed to follow-up with PCP within one week. Please discuss Imdur and its efficacy at time of follow-up. Instructed to return to the ED should he began to have chest pain and/or shortness of breath. No pending labs or studies at time of discharge. Discharge discussed with: patient, nurse - Time Spent with Patient Total time spent providing and/or coordinating discharge services: Less than 30 minutes - Discharge Medications Prescriptions: Isosorbide MONOnitrate (24 HR) [Imdur] 30 mg PO DAILY 30 Days #30 tab.er.24h Home Medications: Acetaminophen [Tylenol] 1,000 mg PO BID 10/23/15 [History] Aspirin [Adult Low Dose Aspirin EC] 81 mg PO DAILY 10/23/15 [History] Budesonide/Formoterol 160/4.5 [Symbicort 160/4.5] 2 puff IH BID 10/23/15 [ History] Cetirizine HCl [Zyrtec] 10 mg PO DAILY 10/23/15 [History] Docusate [Colace] 100 mg PO BID #30 capsule 10/23/15 [Rx] Doxazosin [Cardura] 4 mg PO DAILY 10/23/15 [History] Furosemide [Lasix] 40 mg PO DAILY 10/23/15 [History] Glimepiride [Amaryl] 1 mg PO DAILY 10/23/15 [History] Lovastatin 10 mg PO HS 10/23/15 [History] Metformin HCl [Glucophage] 1,000 mg PO BID 10/23/15 [History] Metoprolol Tartrate [Lopressor] 100 mg PO BID 10/23/15 [History] Montelukast [Singulair] 10 mg PO DAILY 10/23/15 [History] Orphenadrine Citrate 100 mg PO BID PRN 10/23/15 [History] Potassium Chloride [K-Tab ER] 10 meq PO BID 10/23/15 [History] Esomeprazole Magnesium [Nexium] 40 mg PO DAILY 01/24/18 [History] Glimepiride [Amaryl] 2 mg PO DAILY 01/24/18 [History] Olmesartan Medoxomil [Benicar] 40 mg PO DAILY 01/24/18 [History] Isosorbide MONOnitrate (24 HR) [Imdur] 30 mg PO DAILY 30 Days #30 tab.er.24h [Rx] Allergies/Adverse Reactions: 3 Allergy/AdvReac Type Severity Reaction Status Date / Time naproxen Allergy Anaphylaxis Verified 01/24/18 15:47 Sulfa (Sulfonamide Allergy Hives Verified 01/24/18 15:47 Antibiotics) Date of admission: 01/24/18 17:32 Primary care physician: Tera Ray DO Discharging clinician: Osman Garsia Anticipated date of discharge: 01/25/18 - Constitutional Vitals: Temp Pulse Resp BP Pulse Ox 97.9 F 61 17 132/76 90 01/25/18 15:28 01/25/18 15:28 01/25/18 15:28 01/25/18 15:28 01/25/18 15:28 General appearance: Present: A&O X 3, answers questions appropriately - Head Head exam: Present: atraumatic, normocephalic - Eye Eye exam: Present: PERRL, conjuntiva pink, sclera anicteric Pupils: Present: PERRL - Neck Neck exam general surgery: Present: supple, trachea midline. Absent: lymphadenopathy - Respiratory Respiratory exam: Present: CTAB. Absent: accessory muscle use, rales, rhonchi, wheezes - Cardiovascular Cardiovascular exam: Present: RRR, +S1, +S2. Absent: diastolic murmur, gallop, rubs, systolic murmur - GI/Abdominal GI/Abdominal exam: Present: normal bowel sounds, soft, no peritoneal signs. Absent: distended, tenderness - Extremities Exam Extremities exam: Present: warm, radial pulses palpable and symmetrical. Absent : calf tenderness, cyanotic, pedal edema - Neurological Exam Neurological exam: Present: alert, CN II-XII intact, oriented X3, no focal deficits. Absent: pronater drift, facial droop, speech deficit - Skin Skin exam: Present: dry, intact - Patient Status Disposition: Home, Self-Care Condition: Fair Functional capacity at discharge: independent ambulation Overall status at discharge: patient is back to baseline - Discharge Instructions Instructions: Chest Pain (DC), Chronic Hypertension (DC), Diabetes Mellitus Type 2 in Adults (DC) Follow Up With: Jessa Ferrera MD [Partnered Physician] - 02/03/18 11:35 am Tera Ray DO [Primary Care Provider] - 02/23/18 1:30 pm - Diet and Activity Activity: resume usual activities as tolerated Diet: diabetic diet, low fat, low cholesterol
[2018-01-25] MEDS ORDERED: Isosorbide MONOnitrate (24 HR) 30 MG TAB.ER.24H PO SCH (16:00)
--- NOTE | 2018-01-25 17:26 | Electrocardiograph Report ---
[place] [id number] Test Date: 2018-01-24 Pat Name: Kishore Amador Department: 103 Room: 3B35 Gender: M Mail Carrier: JAXON : 1945 Requested By: Melecio Naik Order Number: [id number] Reading MD: Gina Rogel Measurements Intervals [place] Rate: 60 P: 29 [place]: 161 QRS: -12 QRSD: 108 T: 52 QT: 389 QTc: 391 Interpretive Statements SINUS RHYTHM POSSIBLE LEFT VENTRICULAR HYPERTROPHY [VOLTAGE CRITERIA PLUS LAE OR QRS WIDENING] Electronically Signed On 01-25-2018 17:24:49 EDT by Gina Rogel
== END 2018-01-25 17:37 | disposition home or self-care (01) ==
LOC: 3BNU 15:40 → EMEROO 15:40 → 3BNU 18:15
PROVIDERS: ADMIT Internal Medicine; ATTEND Internal Medicine

== ENCOUNTER 2019-02-21 15:20 | Observation (INO) ==
--- NOTE | 2019-02-21 15:48 | Emergency Department Note ---
Disposition Clinical Impression: Unstable angina, CAD (coronary artery disease) Disposition: Admitted As Inpatient Condition: Good Referrals: Tera Ray DO [Primary Care Provider] - Forms: ED Satisfaction Letter Time of Disposition: 16:59 Chest Pain HPI - General Chief Complaint: ED Chest Pain Stated Complaint: cp Time Seen by Provider: 02/21/19 15:25 Source: patient, EMS Limitations: no limitations Vital Signs Reviewed: Yes Nursing Notes Reviewed: Yes - History of Present Illness HPI Narrative: 73-year-old male presents emergency of chest pain. Onset around 9 AM today while sitting at home. Took 2 nitroglycerin earlier with some relief. Called ambulance due to the pain persisting. No radiation. Substernal in location. Did feel slightly queasy to his stomach. He feels like his legs him in getting more swollen intermittently. He does have a history of 3 stents. Last stent was placed a couple years ago. He said no heart catheterization since. He did get nitroglycerin again from the squad as well as aspirin. This did relieve his chest pain. He denies any shortness of breath. No diaphoresis. Severity scale (1-10): 3 - Related Data Home Medications Medication Instructions Recorded Confirmed Acetaminophen [Tylenol] 1,000 mg PO BID 10/23/15 01/24/18 Aspirin [Adult Low Dose Aspirin EC] 81 mg PO DAILY 10/23/15 01/24/18 Budesonide/Formoterol 160/4.5 2 puff IH BID 10/23/15 01/24/18 [Symbicort 160/4.5] Cetirizine HCl [Zyrtec] 10 mg PO DAILY 10/23/15 01/24/18 Doxazosin [Cardura] 4 mg PO DAILY 10/23/15 01/24/18 Furosemide [Lasix] 40 mg PO DAILY 10/23/15 01/24/18 Glimepiride [Amaryl] 1 mg PO DAILY 10/23/15 01/24/18 Lovastatin 10 mg PO HS 10/23/15 01/24/18 Metformin HCl [Glucophage] 1,000 mg PO BID 10/23/15 01/24/18 Metoprolol Tartrate [Lopressor] 100 mg PO BID 10/23/15 01/24/18 Montelukast [Singulair] 10 mg PO DAILY 10/23/15 01/24/18 Orphenadrine Citrate [Orphenadrine 100 mg PO BID PRN 10/23/15 01/24/18 Citrate ER] Potassium Chloride [K-Tab ER] 10 meq PO BID 10/23/15 01/24/18 Esomeprazole Magnesium [Nexium] 40 mg PO DAILY 01/24/18 01/24/18 Glimepiride [Amaryl] 2 mg PO DAILY 01/24/18 01/24/18 Olmesartan Medoxomil [Benicar] 40 mg PO DAILY 01/24/18 01/24/18 Previous Rx's Medication Instructions Recorded Docusate [Colace] 100 mg PO BID #30 capsule 10/23/15 Isosorbide MONOnitrate (24 HR) 30 mg PO DAILY 30 Days #30 01/25/18 [Imdur] tab.er.24h Allergies Allergy/AdvReac Type Severity Reaction Status Date / Time naproxen Allergy Anaphylaxis Verified 01/24/18 15:47 Sulfa (Sulfonamide Allergy Hives Verified 01/24/18 15:47 Antibiotics) All systems ED: reviewed and negative except as stated. Constitutional: Reports: as per HPI Eyes: Reports: as per HPI Cardiovascular: Reports: chest pain Respiratory: Reports: as per HPI Gastrointestinal: Reports: as per HPI Musculoskeletal: Reports: as per HPI Integumentary: Reports: as per HPI Neurological: Reports: as per HPI Psychiatric: Reports: as per HPI Endocrine: Reports: as per HPI Hematological/Lymphatic: Reports: as per HPI Chest Pain PMH - Past Medical History Medical history: Reports: asthma, CHF, coronary artery disease, diabetes, GERD, GI bleed, hyperlipidemia, hypertension, peripheral artery disease Surgical history: Reports: sinus surgery, other Psychiatric history: Reports: no psych history - Social History Smoking Status: Never smoker Alcohol use: Reports: none Drug use: Reports: none Physical Exam HEENT: Head atraumatic normocephalic. Pharynx clear with no exudates. Oral mucosa moist. Uvula midline. TMs clear bilaterally. Trachea midline. No lymphadenopathy. Heart: Regular rate and rhythm. Normal S1 and S2. No gallops, rubs, or murmurs. Lungs: Clear to auscultation bilaterally. No evidence of any rhonchi wheezing or rales. Abdomen: Soft nontender nondistended. Positive bowel sounds. No peritoneal signs. Extremities: No evidence of cyanosis clubbing or edema. Neuro: Cranial nerves II through XII grossly intact. No focal motor or sensory deficits. Speech is clear. Skin: Normal color. dry. Psych: normal mentation. - General Limitations: no limitations General appearance: alert Course Vital Signs Temperature 98.4 F 02/21/19 15:25 Pulse Rate 60 02/21/19 15:25 Respiratory Rate 16 02/21/19 15:25 Blood Pressure 112/101 02/21/19 15:25 O2 Sat by Pulse Oximetry 95 02/21/19 15:25 Temperature 98.4 F 02/21/19 15:25 Pulse Rate 60 02/21/19 15:25 Respiratory Rate 16 02/21/19 15:25 Blood Pressure 112/101 02/21/19 15:25 O2 Sat by Pulse Oximetry 95 02/21/19 15:25 Oxygen Delivery Oxygen Delivery Room Air Chest Pain - Medical Records Medical records reviewed: Yes I reviewed the patient's medical records. - Lab Data Lab results reviewed: Yes I reviewed the patient's lab results. Result diagrams: 02/21/19 15:48 02/21/19 15:48 Lab Results 02/21/19 02/21/19 Range/Units 15:48 15:48 WBC 4.5 (4.3-11.1) K/mcL RBC 4.14 L (4.19-5.50) M/mcL Hgb 13.1 (12.9-16.9) g/dL Hct 38.2 (37.5-50.1) % MCV 92.3 (83.0-100.0) fL MCH 31.6 (28.0-33.3) pg MCHC 34.3 (31.6-35.5) g/dL RDW 12.4 (11.5-14.5) % Plt Count 178 (140-400) K/mcL MPV 10.6 (9.4-12.4) fL Immature Gran % 0.2 (0-4) % Seg Neutrophils % 50.0 % Lymphocytes % 36.4 % Monocytes % 9.2 % Eosinophils % 3.8 % Basophils % 0.4 % Neutrophils # 2.2 (1.6-8.9) K/mcL Lymphocytes # 1.6 (0.6-4.6) K/mcL Monocytes # 0.4 (0.0-1.3) K/mcL Eosinophils # 0.2 (0.0-0.6) K/mcL Basophils # 0.0 (0.0-0.2) K/mcL Sodium 139 (136-145) mEq/L Potassium 4.3 (3.5-5.1) mEq/L Chloride 107 (98-107) mEq/L Carbon Dioxide 25 (23-29) mEq/L BUN 13 (8-23) mg/dL Creatinine 1.11 (0.70-1.30) mg/dL Est GFR ( Amer) > 60 (> 60) Est GFR (Non-Af Amer) > 60 (> 60) BUN/Creatinine Ratio 12 (6-26) Glucose 110 H (70-105) mg/dL Calculated Osmolality 289 (280-300) Calcium 9.0 (8.6-10.3) mg/dL Troponin I < 0.03 (< 0.04) ng/mL - Radiology Data Radiology results reviewed: Yes I reviewed the patient's radiology results. - EKG Data EKG attestation: Yes I reviewed and interpreted this EKG. EKG results narrative: EKG shows a rate of 60. No sinus rhythm. Left axis deviation. [place] interval 134. QRS 104. QTC 414. No sensory acute ischemia. Heart Score - Score History: Moderately Suspicious EKG: Normal Age: Greater than 65 Risk Factors: Equal/Greater than 3 risk factor or history of atherosclerotic disease Troponin: Less than normal limit HEART Score Total: 5
[2019-02-21 16:05] LABS: Basophils % 0.4 %; Eosinophils # 0.2 K/mcL (0.0-0.6); Eosinophils % 3.8 %; Hematocrit 38.2 % (37.5-50.1); Hemoglobin 13.1 g/dL (12.9-16.9); Immature Granulocytes % 0.2 % (0-4); Lymphocytes # 1.6 K/mcL (0.6-4.6); Lymphocytes % 36.4 %; Mean Corpuscular HGB Conc 34.3 g/dL (31.6-35.5); Mean Corpuscular Hemoglobin 31.6 pg (28.0-33.3); Mean Corpuscular Volume 92.3 fL (83.0-100.0); Mean Platelet Volume 10.6 fL (9.4-12.4); Monocytes # 0.4 K/mcL (0.0-1.3); Monocytes % 9.2 %; Neutrophils # 2.2 K/mcL (1.6-8.9); Platelet Count 178 K/mcL (140-400); Red Blood Count 4.14 M/mcL (4.19-5.50); Red Cell Distribution Width 12.4 % (11.5-14.5); White Blood Count 4.5 K/mcL (4.3-11.1)
[2019-02-21 16:21] LABS: BUN/Creatinine Ratio 12 (6-26); Blood Urea Nitrogen 13 mg/dL (8-23); Carbon Dioxide 25 mEq/L (23-29); Chloride 107 mEq/L (98-107); Glucose 110 mg/dL (70-105); Osmolality,Calculated 289 (280-300); Potassium 4.3 mEq/L (3.5-5.1); Sodium 139 mEq/L (136-145); Troponin I < 0.03 ng/mL (< 0.04); eGFR For African Americans > 60 (> 60); eGFR For Non-African Americans > 60 (> 60)
[2019-02-21] MEDS ORDERED: MOM Conc 10 ML UD.LIQ PO PRN (17:22)
[2019-02-21] MEDS ORDERED: traMADol 50 MG TABLET PO PRN (17:22)
[2019-02-21] MEDS ORDERED: Acetaminophen 325 MG TABLET PO PRN (17:22)
[2019-02-21] MEDS ORDERED: Mag Hydrox/Al Hydrox/Simeth 30 ML UDC PO PRN (17:22)
[2019-02-21] MEDS ORDERED: *HR* Promethazine 25 MG/ML VIAL IVP PRN (17:22)
[2019-02-21] MEDS ORDERED: Ondansetron 4 MG/2 ML VIAL IVP PRN (17:22)
[2019-02-21] MEDS ORDERED: Naloxone 0.4 MG/ML INJ IVP PRN (17:22)
[2019-02-21] MEDS ORDERED: Dextrose Gel 15 GM/37.5 ML TUBE PO PRN ×2 (17:24)
[2019-02-21] MEDS ORDERED: *HR* Dextrose 50 % in Water (Syg) 50 ML SYRINGE IVP PRN (17:24)
[2019-02-21] MEDS ORDERED: D5% in Water 1,000 ML IVC PRN (17:24)
--- NOTE | 2019-02-21 17:48 | Internal Med History&Physical ---
Date of Encounter: 02/21/19 Time of Encounter: 17:46 Internal Medicine - H&P: HPI Admitted From: Home Plans for Post Hospital Care: Home History of present illness: Mr. Amador is a 73 year old male presents emergency of chest pain. Onset around 9 AM today while sitting at home. Took 2 nitroglycerin earlier with some relief. Called ambulance due to the pain persisting. No radiation. Substernal in location. Did feel slightly queasy to his stomach. He feels like his legs him in getting more swollen intermittently. He does have a history of 3 stents. Last stent was placed a couple years ago. He said no heart catheterization since. He did get nitroglycerin again from the squad as well as aspirin. This did relieve his chest pain. He denies any shortness of breath. No diaphoresis. ED workup showed a negative troponin 1, EKG has no acute ST-T change. Patient will be admitted for further evaluation. CODE STATUS: Full code. Past Med Surg Social Fam HX - Past Medical History Medical history: asthma, CHF, coronary artery disease, diabetes, GERD, GI bleed, hyperlipidemia, hypertension, peripheral artery disease Additional medical history: hernia Psychiatric history: no psych history - Past Surgical History Surgical History: sinus surgery, other Additional surgical history: 3 cardiac stents placed, cardiac ablation, colonoscopy, hemorrhoid surgery - Social History Smoking Status: Never smoker Smokeless Tobacco Status: No Alcohol use: none Drug use: none - Family History Mother Living Status: Hx Family Cardiac Disorders: Yes Hx Family Respiratory Disorders: No Hx Family Cancer: No Hx Family GI Disorders: No Hx Family Endocrine Disorder: Yes Hx Family Neuromuscular Disorders: No Hx Family Neurologic Disorders: No Hx Family HEENT Disorders: No Hx Family Autoimmune Disorders: No Internal Medicine - H&P: Meds Acetaminophen [Tylenol] 1,000 mg PO BID 10/23/15 [History] Aspirin [Adult Low Dose Aspirin EC] 81 mg PO DAILY 10/23/15 [History] Budesonide/Formoterol 160/4.5 [Symbicort 160/4.5] 2 puff IH BID 10/23/15 [History] Cetirizine HCl [Zyrtec] 10 mg PO DAILY 10/23/15 [History] Docusate [Colace] 100 mg PO BID #30 capsule 10/23/15 [Rx] Doxazosin [Cardura] 4 mg PO DAILY 10/23/15 [History] Glimepiride [Amaryl] 2 mg PO DAILY 10/23/15 [History] Lovastatin 10 mg PO HS 10/23/15 [History] Metformin HCl [Glucophage] 1,000 mg PO BID 10/23/15 [History] Metoprolol Tartrate [Lopressor] 100 mg PO BID 10/23/15 [History] Montelukast [Singulair] 10 mg PO DAILY 10/23/15 [History] Orphenadrine Citrate [Orphenadrine Citrate ER] 100 mg PO BID PRN 10/23/15 [History] Potassium Chloride [K-Tab ER] 10 meq PO BID 10/23/15 [History] Esomeprazole Magnesium [Nexium] 40 mg PO DAILY 01/24/18 [History] Olmesartan Medoxomil [Benicar] 40 mg PO DAILY 01/24/18 [History] Isosorbide MONOnitrate (24 HR) [Imdur] 30 mg PO DAILY 30 Days #30 tab.er.24h 01/25/18 [Rx] Gabapentin [Neurontin] 300 mg PO DAILY 02/21/19 [History] Lisinopril 40 mg PO DAILY 02/21/19 [History] Omeprazole [PriLOSEC] 40 mg PO DAILY 02/21/19 [History] Torsemide [Demadex] 20 mg PO DAILY 02/21/19 [History] Allergy/AdvReac Type Severity Reaction Status Date / Time naproxen Allergy Anaphylaxis Verified 01/24/18 15:47 Sulfa (Sulfonamide Allergy Hives Verified 01/24/18 15:47 Antibiotics) All Systems PM: A 10-system review of systems was performed and is negative for pertinent findings except as documented above in the HPI. Review of systems: REVIEW OF SYSTEMS: CONSTITUTIONAL: No weight loss, fever, chills, weakness or fatigue. HEENT: Eyes: No visual loss, blurred vision, double vision or yellow sclerae. Ears, Nose, Throat: No hearing loss, sneezing, congestion, runny nose or sore throat. SKIN: No rash or itching. CARDIOVASCULAR: No chest pain, chest pressure or chest discomfort. No palpitations or edema. RESPIRATORY: No shortness of breath, cough or sputum. GASTROINTESTINAL: No anorexia, nausea, vomiting or diarrhea. No abdominal pain or blood. GENITOURINARY: No dysuria, urgency, or frequency. NEUROLOGICAL: No headache, dizziness, syncope, paralysis, ataxia, numbness or tingling in the extremities. No change in bowel or bladder control. MUSCULOSKELETAL: No muscle, back pain, joint pain or stiffness. HEMATOLOGIC: No anemia, bleeding or bruising. LYMPHATICS: No enlarged nodes. No history of splenectomy. PSYCHIATRIC: No history of depression or anxiety. ENDOCRINOLOGIC: No reports of sweating, cold or heat intolerance. No polyuria or polydipsia. - Constitutional Vitals: Temp Pulse Resp BP Pulse Ox 98.4 F 60 16 133/79 96 02/21/19 15:25 02/21/19 17:16 02/21/19 17:16 02/21/19 17:16 02/21/19 17:16 General appearance: Present: A&O X 3 Exam: PHYSICAL EXAMINATION: GENERAL APPEARANCE: The patient is alert, oriented and in no acute distress. HEENT: Head is normocephalic. The sinuses are nontender. Pupils are equal and reactive. The nares are patent. Oropharynx clear without lesions. NECK: Supple without lymphadenopathy. HEART: Regular rate and rhythm. LUNGS: No crackles or wheezes are heard. ABDOMEN: Soft, nontender, nondistended with good bowel sounds heard. Inguinal area is normal. EXTREMITIES: 1+ edema at BLE. NEUROLOGICAL: Gross nonfocal. SKIN: Warm and dry without any rash. Internal Med - H&P Results - Labs CBC & Chem 7: 02/21/19 15:48 02/21/19 15:48 Labs: Short CBC 02/21/19 Range/Units 15:48 WBC 4.5 (4.3-11.1) K/mcL Hgb 13.1 (12.9-16.9) g/dL Hct 38.2 (37.5-50.1) % Plt Count 178 (140-400) K/mcL Neutrophils # 2.2 (1.6-8.9) K/mcL BMP 02/21/19 15:48 Sodium 139 Potassium 4.3 Chloride 107 Carbon Dioxide 25 BUN 13 Creatinine 1.11 Glucose 110 H Calcium 9.0 Cardiac Enzymes 02/21/19 Range/Units 15:48 Troponin I < 0.03 (< 0.04) ng/mL - Impressions ITS Impressions Chest X-Ray 02/21/19 15:43 IMPRESSION: No acute process. D/ / John Mason MD / John Mason MD Interpreting Provider: John Mason MD - Assessment and Plan (1) Chest pain Current Visit: Yes Status: Acute Assessment and plan: Continue cycling troponin, telemetry monitoring, EKG as needed. Stress test and echo in the morning. Received 1 dose of aspirin, continue daily aspirin. Nitroglycerin as needed for chest pain. Qualifiers: Chest pain type: unspecified Qualified Code(s): R07.9 - Chest pain, unspeci fied (2) Essential hypertension Current Visit: No Status: Chronic Assessment and plan: BP controlled, continue home medication. (3) Diabetes mellitus Current Visit: No Status: Chronic Assessment and plan: Hold home oral agent, started patient on insulin sliding scale. Qualifiers: Diabetes mellitus type: type 2 Diabetes mellitus long goods drier insulin use: without half-way use Diabetes mellitus complication status: without c omplication Qualified Code(s): E11.9 - Type 2 diabetes mellitus without c omplications (4) Coronary artery disease Current Visit: No Status: Chronic Assessment and plan: Continue home medications including aspirin. Workup as above. Qualifiers: Coronary Disease-Associated Artery/Lesion type: [place] artery [place] vs. transplanted heart: robinson heart Associated angina: with stable angina Qualified Code(s): I25.118 - Atherosclerotic heart disease of [place] coronary artery with other forms of angina pectoris (5) Hyperlipidemia Current Visit: No Status: Chronic Qualifiers: Hyperlipidemia type: pure hyperglyceridemia Qualified Code(s): E78.1 - Pure hyperglyceridemia (6) Asthma Current Visit: No Status: Chronic Assessment and plan: No evidence of exacerbation, continue home medications. Qualifiers: Asthma severity: unspecified severity Asthma complication type: unspecified Qualified Code(s): J45.909 - Unspecified asthma, uncomplicated (7) DVT prophylaxis Current Visit: Yes Status: Acute Assessment and plan: Heparin subcutaneous. (8) Diastolic congestive heart failure Current Visit: No Status: Chronic Assessment and plan: Mild fluid overload on physical exam, increase torsemide to 20 mg twice a day. Echo ordered. Qualifiers: Heart failure chronicity: chronic Qualified Code(s): I50.32 - Chronic diastolic (congestive) heart failure - Time Spent With Patient Total time spent is greater than 50% in coordination of care (as documented) at patient's floor/unit and/or counseling patient: Greater than 35 minutes
[2019-02-21] MEDS: *HR* Heparin 5,000 UNIT/ML VIAL SQ SCH (19:38)
[2019-02-21] MEDS: Budesonide/Formoterol 160/4.5 1 PUFF INH IH SCH (19:54)
[2019-02-21] MEDS: Insulin LISPRO 300 UNITS/3 ML VIAL SQ SCH (20:17)
[2019-02-21] MEDS: Torsemide 20 MG TABLET PO SCH (20:25)
[2019-02-22 03:56] LABS: Hematocrit 40.1 % (37.5-50.1); Hemoglobin 13.5 g/dL (12.9-16.9); Mean Corpuscular HGB Conc 33.7 g/dL (31.6-35.5); Mean Corpuscular Volume 92.2 fL (83.0-100.0); Mean Platelet Volume 10.7 fL (9.4-12.4); Platelet Count 188 K/mcL (140-400); Red Blood Count 4.35 M/mcL (4.19-5.50); Red Cell Distribution Width 12.4 % (11.5-14.5); White Blood Count 5.6 K/mcL (4.3-11.1)
[2019-02-22 04:16] LABS: Alanine Aminotransferase 25 Units/L (7-52); Albumin 4.3 g/dL (3.5-5.7); Albumin/Globulin Ratio 1.9 (1.1-2.2); Alkaline Phosphatase 46 Units/L (34-104); Aspartate Amino Transferase 23 Units/L (13-39); BUN/Creatinine Ratio 12 (6-26); Bilirubin,Total 0.5 mg/dL (0.3-1.0); Blood Urea Nitrogen 15 mg/dL (8-23); Calcium 9.3 mg/dL (8.6-10.3); Carbon Dioxide 27 mEq/L (23-29); Chloride 103 mEq/L (98-107); Chol/HDL Ratio 4.5 (0-4.9); Cholesterol 121 mg/dL (< 200); Globulin 2.3 g/dL (2.4-3.5); Glucose 139 mg/dL (70-105); HDL Cholesterol 27 mg/dL (40-59); LDL Cholesterol,Calculated 45 mg/dL (0-99); Magnesium 2.2 mg/dL (1.6-2.6); Osmolality,Calculated 289 (280-300); Phosphorous 3.8 mg/dL (2.7-4.5); Potassium 4.1 mEq/L (3.5-5.1); Sodium 138 mEq/L (136-145); Total Protein 6.6 g/dL (6.4-8.9); Triglycerides 245 mg/dL (< 150); eGFR For African Americans > 60 (> 60); eGFR For Non-African Americans 55 (> 60)
[2019-02-22] MEDS: *HR* Heparin 5,000 UNIT/ML VIAL SQ SCH ×2 (05:05→17:12)
[2019-02-22] MEDS ORDERED: Regadenoson 0.4 MG/5 ML SYRINGE IVP ONE (06:19)
[2019-02-22] MEDS: Insulin LISPRO 300 UNITS/3 ML VIAL SQ SCH ×4 (09:46→20:06)
[2019-02-22] MEDS: Aspirin Enteric Coated 81 MG Tablet PO SCH (09:52)
[2019-02-22] MEDS: Torsemide 20 MG TABLET PO SCH ×2 (09:53→17:12)
[2019-02-22] MEDS: Gabapentin 300 MG CAPSULE PO SCH (09:53)
[2019-02-22] MEDS: Loratadine 10 MG TABLET PO SCH (09:54)
[2019-02-22] MEDS: Isosorbide MONOnitrate (24 HR) 30 MG TAB.ER.24H PO SCH (09:54)
[2019-02-22] MEDS: Lisinopril 20 MG TABLET PO SCH (09:56)
--- NOTE | 2019-02-22 10:19 | Internal Med Progress Note ---
Hospitalist Progress Note - Encounter Date of Encounter: 02/22/19 Time of Encounter: 10:17 - Subjective Interval History: Mr. Amador is a 73 year old male presents emergency of chest pain. Onset around 9 AM today while sitting at home. Took 2 nitroglycerin earlier with some relief. Called ambulance due to the pain persisting. No radiation. Substernal in location. Did feel slightly queasy to his stomach. He feels like his legs him in getting more swollen intermittently. He does have a history of 3 stents. Last stent was placed a couple years ago. He said no heart catheterization since. He did get nitroglycerin again from the squad as well as aspirin. This did relieve his chest pain. He denies any shortness of breath. No diaphoresis. ED workup showed a negative troponin 1, EKG has no acute ST-T change. Patient will be admitted for further evaluation. Pt seen and examined in the room. She reported absence of chest pain currently. - Exam Vitals: Temp Pulse Resp BP Pulse Ox 97.9 F 58 15 149/81 97 02/22/19 07:25 02/22/19 07:25 02/22/19 07:25 02/22/19 07:25 02/22/19 07:25 Exam: PHYSICAL EXAMINATION: GENERAL APPEARANCE: The patient is alert, oriented and in no acute distress. HEENT: Head is normocephalic. The sinuses are nontender. Pupils are equal and reactive. The nares are patent. Oropharynx clear without lesions. NECK: Supple without lymphadenopathy. HEART: Regular rate and rhythm. LUNGS: No crackles or wheezes are heard. ABDOMEN: Soft, nontender, nondistended with good bowel sounds heard. Inguinal area is normal. EXTREMITIES: 1+ edema at BLE. NEUROLOGICAL: Gross nonfocal. SKIN: Warm and dry without any rash. - Assessment and Plan (1) Chest pain Current Visit: Yes Status: Acute Assessment and Plan: Serial trop was negative, ecg has no acute changes. Pending echo and stress test. (2) Essential hypertension Current Visit: No Status: Chronic Assessment and Plan: BP controlled, continue home medication. (3) Diabetes mellitus Current Visit: No Status: Chronic Assessment and Plan: Hold home oral agent, started patient on insulin sliding scale. (4) Coronary artery disease Current Visit: No Status: Chronic Assessment and Plan: Continue home medications including aspirin. Workup as above. (5) Hyperlipidemia Current Visit: No Status: Chronic Assessment and Plan: continue home meds. (6) Asthma Current Visit: No Status: Chronic Assessment and Plan: No evidence of exacerbation, continue home medications. (7) DVT prophylaxis Current Visit: Yes Status: Acute Assessment and Plan: Heparin subcutaneous. (8) Diastolic congestive heart failure Current Visit: No Status: Chronic Assessment and Plan: Mild fluid overload on physical exam, increase torsemide to 20 mg twice a day. Echo ordered. - Time Spent with Patient Total time spent is greater than 50% in coordination of care (as documented) at patient's floor/unit and/or counseling patient: Greater than 35 minutes Plan of Care Discussed with: patient Internal Medicine: Result - Labs CBC & Chem 7: 02/22/19 03:33 02/22/19 03:33 Labs: Short CBC 02/21/19 02/22/19 Range/Units 15:48 03:33 WBC 4.5 5.6 (4.3-11.1) K/mcL Hgb 13.1 13.5 (12.9-16.9) g/dL Hct 38.2 40.1 (37.5-50.1) % Plt Count 178 188 (140-400) K/mcL Neutrophils # 2.2 (1.6-8.9) K/mcL BMP 02/21/19 02/22/19 15:48 03:33 Sodium 139 138 Potassium 4.3 4.1 Chloride 107 103 Carbon Dioxide 25 27 BUN 13 15 Creatinine 1.11 1.28 Glucose 110 H 139 H Calcium 9.0 9.3 Cardiac Enzymes 02/21/19 02/21/19 02/22/19 Range/Units 15:48 21:13 03:33 Troponin I < 0.03 < 0.03 < 0.03 (< 0.04) ng/mL Liver Function 02/22/19 Range/Units 03:33 Total Bilirubin 0.5 (0.3-1.0) mg/dL AST 23 (13-39) Units/L ALT 25 (7-52) Units/L Alkaline Phosphatase 46 (34-104) Units/L Albumin 4.3 (3.5-5.7) g/dL - Impressions Impressions Chest X-Ray 02/21/19 15:43 IMPRESSION: No acute process. D/ / John Mason MD / John Mason MD Interpreting Provider: John Mason MD Echocardiogram 02/21/19 17:27 Impressions: LVEF 60%. Grade 1 left ventricular diastolic dysfunction. Normal LV chamber size, wall thickness and systolic function. Normal right ventricular structure and function. No evidence of pulmonary hypertension. No significant valvular dysfunction. Left Ventricular Wall Motion: Rest Echo Findings All wall segments showed normal motion. Findings: Study Quality * Technically sub-optimal due to poor echocardiographic windows. ECG Findings * Sinus rhythm with BBB. Left Ventricle * LVEF 60%. * Grade 1 left ventricular diastolic dysfunction. * Normal LV chamber size, wall thickness and systolic function. Right Ventricle * Normal right ventricular structure and function. Left Atrium * Mildly dilated left atrium. Right Atrium * Normal right atrial size. Aortic Valve * Trileaflet aortic valve. * No aortic regurgitation. * No aortic stenosis. * Normal aortic valve structure. Mitral Valve * Normal mitral valve structure. * No mitral regurgitation. * No mitral stenosis. Tricuspid Valve * No evidence of pulmonary hypertension. * Trace tricuspid regurgitation. * No tricuspid stenosis. * Normal tricuspid valve structure. Pulmonic Valve * Trace pulmonic regurgitation. Aorta * Normally sized aortic root. Pericardium * The pericardium appears normal. IVC * The IVC is not well evaluated. Pulmonary Artery * Pulmonary artery not well visualized. Consult Discharge Plan - Plan Referrals: Karri Miller MD [Partnered Physician] - 04/12/19 2:30 pm Davis Adamson MD [Partnered Physician] - 03/31/19 11:30 am Tera Ray DO [Primary Care Provider] - 03/01/19 11:30 am () (1) Chest pain Qualifiers: Chest pain type: unspecified Qualified Code(s): R07.9 - Chest pain, unspecified (3) Diabetes mellitus Qualifiers: Diabetes mellitus type: type 2 Diabetes mellitus long term care pharmacist insulin use: without care home use Diabetes mellitus complication status: without complication Qualified Code(s): E11.9 - Type 2 diabetes mellitus without complications (4) Coronary artery disease Qualifiers: Coronary Disease-Associated Artery/Lesion type: [place] artery [place] vs. transplanted heart: [place] heart Associated angina: with stable angina Qualified Code(s): I25.118 - Atherosclerotic heart disease of [place] coronary artery with other forms of angina pectoris (5) Hyperlipidemia Qualifiers: Hyperlipidemia type: pure hyperglyceridemia Qualified Code(s): E78.1 - Pure hyperglyceridemia (6) Asthma Qualifiers: Asthma severity: unspecified severity Asthma complication type: unspecified (8) Diastolic congestive heart failure Qualifiers: Heart failure chronicity: chronic Qualified Code(s): I50.32 - Chronic diastol ic (congestive) heart failure
[2019-02-22] MEDS: Budesonide/Formoterol 160/4.5 1 PUFF INH IH SCH ×2 (10:53→21:26)
[2019-02-22] MEDS ORDERED: tiZANidine 4 MG TABLET PO PRN (14:22)
--- NOTE | 2019-02-22 23:33 | Electrocardiograph Report ---
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
[2019-02-23 04:30] LABS: Hematocrit 41.3 % (37.5-50.1); Hemoglobin 14.3 g/dL (12.9-16.9); Mean Corpuscular HGB Conc 34.6 g/dL (31.6-35.5); Mean Corpuscular Hemoglobin 31.7 pg (28.0-33.3); Mean Corpuscular Volume 91.6 fL (83.0-100.0); Mean Platelet Volume 10.8 fL (9.4-12.4); Platelet Count 188 K/mcL (140-400); Red Blood Count 4.51 M/mcL (4.19-5.50); Red Cell Distribution Width 12.2 % (11.5-14.5)
[2019-02-23 04:51] LABS: BUN/Creatinine Ratio 15 (6-26); Blood Urea Nitrogen 21 mg/dL (8-23); Calcium 9.7 mg/dL (8.6-10.3); Carbon Dioxide 30 mEq/L (23-29); Chloride 99 mEq/L (98-107); Glucose 158 mg/dL (70-105); Osmolality,Calculated 294 (280-300); Potassium 4.4 mEq/L (3.5-5.1); Sodium 139 mEq/L (136-145); eGFR For African Americans > 60 (> 60); eGFR For Non-African Americans 50 (> 60)
[2019-02-23] MEDS: *HR* Heparin 5,000 UNIT/ML VIAL SQ SCH ×2 (05:39→15:54)
[2019-02-23] MEDS: Insulin LISPRO 300 UNITS/3 ML VIAL SQ SCH ×3 (08:16→15:53)
[2019-02-23] MEDS: Loratadine 10 MG TABLET PO SCH (08:17)
[2019-02-23] MEDS: Lisinopril 20 MG TABLET PO SCH (08:17)
[2019-02-23] MEDS: Aspirin Enteric Coated 81 MG Tablet PO SCH (08:18)
[2019-02-23] MEDS: Torsemide 20 MG TABLET PO SCH ×2 (08:18→15:54)
[2019-02-23] MEDS: Gabapentin 300 MG CAPSULE PO SCH (08:18)
[2019-02-23] MEDS: Isosorbide MONOnitrate (24 HR) 30 MG TAB.ER.24H PO SCH (08:18)
[2019-02-23] MEDS: Budesonide/Formoterol 160/4.5 1 PUFF INH IH SCH (10:18)
[2019-02-23] MEDS ORDERED: 0.9 % Sodium Chloride 1,000 ML IVC SCH (11:00)
[2019-02-23 15:39] LABS: BUN/Creatinine Ratio 14 (6-26); Blood Urea Nitrogen 19 mg/dL (8-23); Calcium 9.5 mg/dL (8.6-10.3); Carbon Dioxide 28 mEq/L (23-29); Chloride 99 mEq/L (98-107); Glucose 159 mg/dL (70-105); Osmolality,Calculated 288 (280-300); Potassium 4.3 mEq/L (3.5-5.1); Sodium 136 mEq/L (136-145); eGFR For African Americans > 60 (> 60); eGFR For Non-African Americans 50 (> 60)
[2019-02-23 16:20] VITALS: BP 153/89
--- NOTE | 2019-02-23 16:49 | Discharge Summary ---
- NOTES TO OUTPATIENT PROVIDER Notes to Outpatient Provider: Presented with chest pain underwent a cardiac stress test which was negative for ischemia or infarct troponins were negative 3. Follow-up with cardiology. May benefit from EGD as outpatient. Follow-up with pulmonology. He had a slight bump in his creatinine will need to monitor as an outpatient Date of Encounter: 02/23/19 Time of Encounter: 16:47 - Discharge Diagnosis (1) Chest pain Priority: Primary Status: Acute Qualifiers: Chest pain type: unspecified Qualified Code(s): R07.9 - Chest pain, unspecified (2) Essential hypertension Priority: Secondary Status: Chronic (3) Diabetes mellitus Priority: Secondary Status: Chronic Qualifiers: Diabetes mellitus type: type 2 Diabetes mellitus senior care insulin use: without order builder use Diabetes mellitus complication status: without complication Qualified Code(s): E11.9 - Type 2 diabetes mellitus without complications (4) Coronary artery disease Priority: Secondary Status: Chronic Qualifiers: Coronary Disease-Associated Artery/Lesion type: platinum artery [place] vs. 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 Amador is a 73 year old male past medical history of asthma CHF coronary disease diabetes with 3 stents GERD GI bleed hypertension hyperlipidemia peripheral artery disease. Patient presented to [facility] ED with complaints of chest pain that occurred at rest he had some relief with 2 nitroglycerin however the pain persisted he did have some nausea troponins were negative 3 chest x- ray was unremarkable EKG with no ischemic changes he did undergo a 2 day stress test which was negative for any ischemia or infarct. He did have a slight bump in his creatinine after the stress test was given some IV fluids advised patient to hold diuretics tonight and he will have lab work checked in 2 days. 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 Patient does have a history of GERD advised she may benefit from EGD. Patient has been chest pain-free during this admission and is currently hemodynamically stable at this time and he is ready for discharge. - Time Spent with Patient Total time spent providing and/or coordinating discharge services: - Discharge Medications Prescriptions: Continued Potassium Chloride [K-Tab ER] 10 meq PO BID Orphenadrine Citrate [Orphenadrine Citrate ER] 100 mg PO BID PRN PRN Reason: Muscle Pain Montelukast [Singulair] 10 mg PO DAILY Metoprolol Tartrate [Lopressor] 100 mg PO BID Metformin HCl [Glucophage] 1,000 mg PO BID Lovastatin 10 mg PO HS Doxazosin [Cardura] 4 mg PO DAILY Cetirizine HCl [Zyrtec] 10 mg PO DAILY Budesonide/Formoterol 160/4.5 [Symbicort 160/4.5] 2 puff IH BID Aspirin [Adult Low Dose Aspirin EC] 81 mg PO DAILY Docusate [Colace] 100 mg PO BID #30 capsule Isosorbide MONOnitrate (24 HR) [Imdur] 30 mg PO DAILY 30 Days #30 tab.er.24h Gabapentin [Neurontin] 600 mg PO Q8H PRN PRN Reason: Muscle Pain Omeprazole [PriLOSEC] 40 mg PO DAILY Torsemide [Demadex] 20 mg PO DAILY Acetaminophen [Tylenol Arthritis] 650 mg PO BID Albuterol Sulfate [Proair Respiclick] 2 puff IH Q4H PRN PRN Reason: Shortness Of Breath Amlodipine Besylate 10 mg PO DAILY Glimepiride [Amaryl] 4 mg PO DAILY metOLazone [Zaroxolyn] 2.5 mg PO Q48H Olmesartan Medoxomil 20 mg PO DAILY Home Medications: Aspirin [Adult Low Dose Aspirin EC] 81 mg PO DAILY 10/23/15 [History] Budesonide/Formoterol 160/4.5 [Symbicort 160/4.5] 2 puff IH BID 10/23/15 [History] Cetirizine HCl [Zyrtec] 10 mg PO DAILY 10/23/15 [History] Docusate [Colace] 100 mg PO BID #30 capsule 10/23/15 [Rx] Doxazosin [Cardura] 4 mg PO DAILY 10/23/15 [History] Lovastatin 10 mg PO HS 10/23/15 [History] Metformin HCl [Glucophage] 1,000 mg PO BID 10/23/15 [History] Metoprolol Tartrate [Lopressor] 100 mg PO BID 10/23/15 [History] Montelukast [Singulair] 10 mg PO DAILY 10/23/15 [History] Orphenadrine Citrate [Orphenadrine Citrate ER] 100 mg PO BID PRN 10/23/15 [History] Potassium Chloride [K-Tab ER] 10 meq PO BID 10/23/15 [History] Isosorbide MONOnitrate (24 HR) [Imdur] 30 mg PO DAILY 30 Days #30 tab.er.24h 01/25/18 [Rx] Gabapentin [Neurontin] 600 mg PO Q8H PRN 02/21/19 [History] Omeprazole [PriLOSEC] 40 mg PO DAILY 02/21/19 [History] Torsemide [Demadex] 20 mg PO DAILY 02/21/19 [History] Acetaminophen [Tylenol Arthritis] 650 mg PO BID 02/22/19 [History] Albuterol Sulfate [Proair Respiclick] 2 puff IH Q4H PRN 02/22/19 [History] Amlodipine Besylate 10 mg PO DAILY 02/22/19 [History] Glimepiride [Amaryl] 4 mg PO DAILY 02/22/19 [History] Olmesartan Medoxomil 20 mg PO DAILY 02/22/19 [History] metOLazone [Zaroxolyn] 2.5 mg PO Q48H 02/22/19 [History] Allergies/Adverse Reactions: Allergy/AdvReac Type Severity Reaction Status Date / Time naproxen Allergy Anaphylaxis Verified 02/22/19 13:47 Sulfa (Sulfonamide Allergy Hives Verified 02/22/19 13:47 Antibiotics) Date of admission: 02/21/19 17:13 Primary care physician: Tera Ray DO Discharging clinician: Magda Jackson Anticipated date of discharge: 02/23/19 - Constitutional Vitals: Temp Pulse Resp BP Pulse Ox 97.4 F L 65 16 153/89 94 02/23/19 16:19 02/23/19 16:19 02/23/19 16:19 02/23/19 16:19 02/23/19 16:19 General appearance: Present: A&O X 3 Exam: Skin: Free of rash and discoloration. Eyes: Sclera is white. There is no discharge from eyes. ENMT: Oral/pharyngeal mucosa is normal in appearance. There is no discharge from nose or ears. Respiratory: Normal breath sounds with no crackles and wheezes bilaterally. CV: Heart is regular with no gallop or murmur. GI: Abdomen is flat and soft with no palpable mass or visceromegaly. : There is no tenderness in patient's flanks bilaterally. Neuro exam: He has good strength in upper and lower extremities. He has normal eye movements. Psychiatric: He has normal affect. His thought process is appropriate to the situation. - Patient Status Disposition: Home, Self-Care Condition: Good Functional capacity at discharge: independent ambulation Overall status at discharge: patient is back to baseline - Ambulatory Orders Ambulatory Orders: Basic Metabolic Panel [CHEM] Time Frame: 02/26/19, Facility: [facility], Location: Lab - Discharge Instructions Follow Up With: Karri Miller MD [Partnered Physician] - 04/12/19 2:30 pm Davis Adamson MD [Partnered Physician] - 03/31/19 11:30 am Rae Garay MD [Partnered Physician] - (Appointment has been requested.) Tera Ray DO [Primary Care Provider] - 03/01/19 11:30 am () - Diet and Activity Activity: increase activity as tolerated Diet: advance to your usual diet
== END 2019-02-23 17:28 | disposition home or self-care (01) ==
LOC: EMEROOARM 15:20 → 2NENU 15:20 → 3BNU 17:20
PROVIDERS: ADMIT Internal Medicine Nephrology; ATTEND Internal Medicine Nephrology

== ENCOUNTER 2020-01-10 17:05 | Inpatient (IN) ==
[2020-01-10] MEDS ORDERED: 0.9 % Sodium Chloride 1,000 ML IVC STA ×2 (17:29→18:35)
[2020-01-10 18:08] LABS: Basophils % 0.3 %; Eosinophils % 0.3 %; Hematocrit 38.9 % (37.5-50.1); Hemoglobin 12.7 g/dL (12.9-16.9); Immature Granulocytes % 0.5 % (0-4); Lymphocytes # 1.1 K/mcL (0.6-4.6); Lymphocytes % 27.9 %; Mean Corpuscular HGB Conc 32.6 g/dL (31.6-35.5); Mean Corpuscular Hemoglobin 30.3 pg (28.0-33.3); Mean Corpuscular Volume 92.8 fL (83.0-100.0); Mean Platelet Volume 10.5 fL (9.4-12.4); Monocytes # 0.2 K/mcL (0.0-1.3); Monocytes % 5.3 %; Neutrophils # 2.5 K/mcL (1.6-8.9); Platelet Count 163 K/mcL (140-400); Red Blood Count 4.19 M/mcL (4.19-5.50); Red Cell Distribution Width 13.3 % (11.5-14.5); Segmented Neutrophils % 65.7 %; White Blood Count 3.8 K/mcL (4.3-11.1)
[2020-01-10 18:22] LABS: Calcium 9.1 mg/dL (8.6-10.3); Potassium 4.8 mEq/L (3.5-5.1)
[2020-01-10] MEDS ORDERED: Azithromycin 500 MG in 0.9 % Sodium Chloride 250 ML IVPB ONE (18:34)
[2020-01-10] MEDS ORDERED: Dexamethasone 4 MG/ML VIAL IVP STA (18:40)
[2020-01-10 18:45] LABS: Bacteria,Urine Few per hpf (None-Few); Bilirubin,Urine Negative (Negative); Blood,Urine Negative (Negative); Clarity,Urine Clear (Clear); Color,Urine Yellow (Yellow); Glucose,Urine (UA) Normal (Normal); Hyaline Casts,Urine Few per lpf (None Seen); Ketones,Urine Negative (Negative); Leukocyte Esterase,Urine Negative (Negative); Mucus,Urine Few per lpf (None-Few); Nitrite,Urine Negative (Negative); PH,Urine 5.5 pH Units (5.0-8.0); Protein,Urine 30 mg/dL (Neg-Trace); Specific Gravity,Urine > 1.030 (1.010-1.025); Squamous Epithelial Cell,Urine Few per hpf (None-Few); Urobilinogen,Urine Normal (Normal); WBC,Urine 0-3 per hpf (0-3)
[2020-01-10 20:46] LABS: Potassium,Urine 56.1 mEq/L; Sodium, Urine 40.7 mEq/L
[2020-01-10] MEDS ORDERED: *HR* Dextrose 50 % in Water (Vial) 50 ML VIAL IVP PRN (21:05)
[2020-01-10] MEDS ORDERED: Naloxone 0.4 MG/ML INJ IVP PRN (21:05)
[2020-01-10] MEDS ORDERED: Dextrose Gel 15 GM/37.5 ML TUBE PO PRN ×2 (21:05)
[2020-01-10] MEDS ORDERED: D5% in Water 1,000 ML IVC PRN (21:05)
[2020-01-10] MEDS ORDERED: Insulin DETEMIR 100 UNIT/ML X5UNITS SQ SCH (21:15)
[2020-01-10 21:44] LABS: INR 1.1; Prothrombin Time 12.5 Seconds (9.4-12.1)
[2020-01-10 21:47] LABS: Alanine Aminotransferase 16 Units/L (7-52); Albumin/Globulin Ratio 1.5 (1.1-2.2); Alkaline Phosphatase 47 Units/L (34-104); Aspartate Amino Transferase 22 Units/L (13-39); Bilirubin,Direct 0.1 mg/dL (0.0-0.2); Bilirubin,Indirect 0.3 mg/dL (0.0-1.0); Bilirubin,Total 0.4 mg/dL (0.3-1.0); Globulin 2.6 g/dL (2.4-3.5); Magnesium 1.6 mg/dL (1.6-2.6); Total Protein 6.6 g/dL (6.4-8.9)
[2020-01-10] MEDS: *HR* Heparin 5,000 UNIT/ML VIAL SQ SCH (22:29)
[2020-01-10] MEDS: Insulin LISPRO 300 UNITS/3 ML VIAL SQ SCH (22:37)
[2020-01-10 23:24] LABS: Troponin I < 0.03 ng/mL (< 0.04)
[2020-01-11] MEDS: *HR* Heparin 5,000 UNIT/ML VIAL SQ SCH ×3 (05:10→20:50)
[2020-01-11 06:21] LABS: Hematocrit 35.4 % (37.5-50.1); Hemoglobin 11.9 g/dL (12.9-16.9); Immature Granulocytes % 0.4 % (0-4); Lymphocytes # 0.7 K/mcL (0.6-4.6); Lymphocytes % 28.6 %; Mean Corpuscular HGB Conc 33.6 g/dL (31.6-35.5); Mean Corpuscular Hemoglobin 31.6 pg (28.0-33.3); Mean Corpuscular Volume 93.9 fL (83.0-100.0); Mean Platelet Volume 10.5 fL (9.4-12.4); Monocytes # 0.1 K/mcL (0.0-1.3); Monocytes % 4.6 %; Neutrophils # 1.7 K/mcL (1.6-8.9); Platelet Count 146 K/mcL (140-400); Red Blood Count 3.77 M/mcL (4.19-5.50); Red Cell Distribution Width 13.2 % (11.5-14.5); Segmented Neutrophils % 66.4 %; White Blood Count 2.6 K/mcL (4.3-11.1)
[2020-01-11 06:42] LABS: BUN/Creatinine Ratio 15 (6-26); Blood Urea Nitrogen 20 mg/dL (8-23); Calcium 8.6 mg/dL (8.6-10.3); Carbon Dioxide 19 mEq/L (23-29); Chloride 106 mEq/L (98-107); Glucose 123 mg/dL (70-105); Magnesium 1.8 mg/dL (1.6-2.6); Osmolality,Calculated 282 (280-300); Phosphorous 3.6 mg/dL (2.7-4.5); Potassium 4.8 mEq/L (3.5-5.1); Sodium 134 mEq/L (136-145); eGFR For African Americans > 60 (> 60); eGFR For Non-African Americans 52 (> 60)
[2020-01-11] MEDS: Insulin LISPRO 300 UNITS/3 ML VIAL SQ SCH ×4 (07:43→21:05)
[2020-01-11] MEDS: Budesonide/Formoterol 160/4.5 1 PUFF INH IH SCH ×2 (07:46→20:19)
[2020-01-11] MEDS: Isosorbide MONOnitrate (24 HR) 30 MG TAB.ER.24H PO SCH (09:19)
[2020-01-11] MEDS: Aspirin Enteric Coated 81 MG Tablet PO SCH (09:19)
[2020-01-11] MEDS: Metoprolol 100 MG TABLET PO SCH ×2 (09:20→20:51)
[2020-01-11] MEDS: cefTRIAXone 1,000 MG in Water for inj. (sterile) 10 ML IVP SCH (09:20)
[2020-01-11] MEDS ORDERED: Ipratropium/Albuterol Neb 3 ML IH PRN (09:29)
[2020-01-11] MEDS: Azithromycin 250 MG TABLET PO SCH (17:18)
[2020-01-11] MEDS ORDERED: cefTRIAXone 1,000 MG in Water for inj. (sterile) 10 ML IVP ONE (18:35)
[2020-01-11] MEDS: Insulin DETEMIR 100 UNIT/ML X5UNITS SQ SCH (21:05)
[2020-01-11] MEDS: Acetaminophen 325 MG TABLET PO PRN (21:05)
[2020-01-11] MEDS ORDERED: Saline Nasal Spray 44 ML BOTTLE NS PRN (21:34)
[2020-01-12] MEDS ORDERED: Acetaminophen IV 1,000 MG/100 ML BAG IVPB ONE (01:47)
[2020-01-12] MEDS: *HR* Heparin 5,000 UNIT/ML VIAL SQ SCH ×3 (05:23→22:02)
[2020-01-12 06:31] LABS: Basophils % 0.2 %; Hematocrit 36.2 % (37.5-50.1); Immature Granulocytes % 0.2 % (0-4); Lymphocytes # 1.1 K/mcL (0.6-4.6); Lymphocytes % 27.9 %; Mean Corpuscular HGB Conc 33.1 g/dL (31.6-35.5); Mean Corpuscular Hemoglobin 31.5 pg (28.0-33.3); Mean Platelet Volume 10.5 fL (9.4-12.4); Monocytes # 0.2 K/mcL (0.0-1.3); Monocytes % 3.9 %; Neutrophils # 2.8 K/mcL (1.6-8.9); Platelet Count 152 K/mcL (140-400); Red Blood Count 3.81 M/mcL (4.19-5.50); Red Cell Distribution Width 13.3 % (11.5-14.5); Segmented Neutrophils % 67.8 %
[2020-01-12 06:32] LABS: White Blood Count 4.1 K/mcL (4.3-11.1)
[2020-01-12 06:44] LABS: Fibrinogen 412 mg/dL (169-393)
[2020-01-12 07:03] LABS: D-Dimer 509 ng/mLFEU (0-500)
[2020-01-12 07:21] LABS: BUN/Creatinine Ratio 13 (6-26); Blood Urea Nitrogen 16 mg/dL (8-23); Calcium 8.5 mg/dL (8.6-10.3); Carbon Dioxide 19 mEq/L (23-29); Chloride 105 mEq/L (98-107); Glucose 111 mg/dL (70-105); Osmolality,Calculated 280 (280-300); Potassium 4.2 mEq/L (3.5-5.1); Sodium 134 mEq/L (136-145); eGFR For African Americans > 60 (> 60); eGFR For Non-African Americans 58 (> 60)
[2020-01-12] MEDS: cefTRIAXone 1,000 MG in Water for inj. (sterile) 10 ML IVP SCH (07:47)
[2020-01-12] MEDS: FLUoxetine 20 MG CAPSULE PO SCH (07:48)
[2020-01-12] MEDS: Aspirin Enteric Coated 81 MG Tablet PO SCH (07:48)
[2020-01-12] MEDS: Isosorbide MONOnitrate (24 HR) 30 MG TAB.ER.24H PO SCH (07:48)
[2020-01-12] MEDS: Metoprolol 100 MG TABLET PO SCH ×2 (07:49→19:23)
[2020-01-12] MEDS: Budesonide/Formoterol 160/4.5 1 PUFF INH IH SCH ×2 (07:53→22:15)
[2020-01-12] MEDS: Insulin LISPRO 300 UNITS/3 ML VIAL SQ SCH ×4 (08:15→19:42)
[2020-01-12] MEDS: Ondansetron ODT 4 MG TAB.RAPDIS SL PRN (08:28)
[2020-01-12 12:05] LABS: Adenovirus F 40/41 PCR Not detected (Not detect); Astrovirus PCR Not detected (Not detect); C.difficile Toxin A/B Gene PCR Not detected (Not detect); Campylobacter by PCR Not detected (Not detect); Cryptosporidium by PCR Not detected (Not detect); Cyclospora cayetanensis PCR Not detected (Not detect); E. coli O157 by PCR Not detected (Not detect); Entamoeba histolytica PCR Not detected (Not detect); Enteroaggregative E.coli(EAEC) Not detected (Not detect); Enteropathogenic E.coli(EPEC) Not detected (Not detect); Enterotoxigenic E.coli (ETEC) Not detected (Not detect); Giardia lamblia PCR Not detected (Not detect); Norovirus GI/GII PCR Not detected (Not detect); Plesiomonas shigelloides PCR Not detected (Not detect); Rotavirus A PCR Not detected (Not detect); Salmonella PCR Not detected (Not detect); Sapovirus PCR Not detected (Not detect); Shig/EnteroinvasiveE coli EIEC Not detected (Not detect); Shigalike tox-prod E coli STEC Not detected (Not detect); Vibrio PCR Not detected (Not detect); Vibrio cholerae PCR Not detected (Not detect); Yersinia enterocolitica PCR Not detected (Not detect)
[2020-01-12] MEDS: Acetaminophen 325 MG TABLET PO PRN ×2 (13:24→19:55)
[2020-01-12] MEDS: Ipratropium 1 PUFF INHALER IH SCH ×2 (16:37→22:16)
[2020-01-12] MEDS: Azithromycin 250 MG TABLET PO SCH (16:39)
[2020-01-12] MEDS: Insulin DETEMIR 100 UNIT/ML X5UNITS SQ SCH (19:42)
[2020-01-13] MEDS ORDERED: Acetaminophen IV 1,000 MG/100 ML BAG IVPB ONE (01:30)
[2020-01-13 03:42] LABS: Basophils % 0.3 %; Hematocrit 34.8 % (37.5-50.1); Hemoglobin 11.7 g/dL (12.9-16.9); Immature Granulocytes % 0.5 % (0-4); Lymphocytes # 0.8 K/mcL (0.6-4.6); Lymphocytes % 20.5 %; Mean Corpuscular HGB Conc 33.6 g/dL (31.6-35.5); Mean Corpuscular Hemoglobin 31.7 pg (28.0-33.3); Mean Corpuscular Volume 94.3 fL (83.0-100.0); Mean Platelet Volume 10.9 fL (9.4-12.4); Monocytes # 0.1 K/mcL (0.0-1.3); Monocytes % 3.6 %; Neutrophils # 2.8 K/mcL (1.6-8.9); Platelet Count 154 K/mcL (140-400); Red Blood Count 3.69 M/mcL (4.19-5.50); Red Cell Distribution Width 13.1 % (11.5-14.5); Segmented Neutrophils % 75.1 %; White Blood Count 3.7 K/mcL (4.3-11.1)
[2020-01-13 04:02] LABS: Alanine Aminotransferase 24 Units/L (7-52); Albumin 3.8 g/dL (3.5-5.7); Albumin/Globulin Ratio 1.6 (1.1-2.2); Alkaline Phosphatase 48 Units/L (34-104); Aspartate Amino Transferase 42 Units/L (13-39); BUN/Creatinine Ratio 11 (6-26); Bilirubin,Total 0.4 mg/dL (0.3-1.0); Blood Urea Nitrogen 12 mg/dL (8-23); Calcium 8.6 mg/dL (8.6-10.3); Carbon Dioxide 17 mEq/L (23-29); Chloride 103 mEq/L (98-107); Globulin 2.4 g/dL (2.4-3.5); Glucose 115 mg/dL (70-105); Osmolality,Calculated 273 (280-300); Potassium 4.1 mEq/L (3.5-5.1); Sodium 131 mEq/L (136-145); Total Protein 6.2 g/dL (6.4-8.9); eGFR For African Americans > 60 (> 60); eGFR For Non-African Americans > 60 (> 60)
[2020-01-13] MEDS: Ipratropium 1 PUFF INHALER IH SCH ×4 (04:18→21:52)
[2020-01-13] MEDS: *HR* Heparin 5,000 UNIT/ML VIAL SQ SCH ×3 (06:09→23:54)
[2020-01-13] MEDS: Aspirin Enteric Coated 81 MG Tablet PO SCH (08:54)
[2020-01-13] MEDS: Metoprolol 100 MG TABLET PO SCH ×2 (08:54→19:52)
[2020-01-13] MEDS: cefTRIAXone 1,000 MG in Water for inj. (sterile) 10 ML IVP SCH (08:54)
[2020-01-13] MEDS: Isosorbide MONOnitrate (24 HR) 30 MG TAB.ER.24H PO SCH (08:54)
[2020-01-13] MEDS: FLUoxetine 20 MG CAPSULE PO SCH (08:54)
[2020-01-13] MEDS: Dexamethasone 10 MG/ML VIAL IVP SCH (08:55)
[2020-01-13] MEDS: Insulin LISPRO 300 UNITS/3 ML VIAL SQ SCH ×4 (08:56→20:25)
[2020-01-13] MEDS: Budesonide/Formoterol 160/4.5 1 PUFF INH IH SCH ×2 (09:41→21:53)
[2020-01-13] MEDS: Azithromycin 250 MG TABLET PO SCH (17:08)
[2020-01-13] MEDS: Insulin DETEMIR 100 UNIT/ML X5UNITS SQ SCH (19:53)
[2020-01-14 01:24] LABS: Hematocrit 33.5 % (37.5-50.1); Hemoglobin 11.4 g/dL (12.9-16.9); Immature Granulocytes % 0.2 % (0-4); Lymphocytes # 0.8 K/mcL (0.6-4.6); Lymphocytes % 16.9 %; Mean Corpuscular Hemoglobin 31.5 pg (28.0-33.3); Mean Corpuscular Volume 92.5 fL (83.0-100.0); Mean Platelet Volume 10.9 fL (9.4-12.4); Monocytes # 0.1 K/mcL (0.0-1.3); Monocytes % 2.9 %; Neutrophils # 3.6 K/mcL (1.6-8.9); Platelet Count 177 K/mcL (140-400); Red Blood Count 3.62 M/mcL (4.19-5.50); Red Cell Distribution Width 12.9 % (11.5-14.5); White Blood Count 4.6 K/mcL (4.3-11.1)
[2020-01-14 01:45] LABS: Alanine Aminotransferase 28 Units/L (7-52); Albumin 3.7 g/dL (3.5-5.7); Albumin/Globulin Ratio 1.4 (1.1-2.2); Alkaline Phosphatase 47 Units/L (34-104); Aspartate Amino Transferase 43 Units/L (13-39); BUN/Creatinine Ratio 13 (6-26); Bilirubin,Total 0.4 mg/dL (0.3-1.0); Blood Urea Nitrogen 16 mg/dL (8-23); Calcium 8.3 mg/dL (8.6-10.3); Carbon Dioxide 21 mEq/L (23-29); Chloride 102 mEq/L (98-107); Globulin 2.6 g/dL (2.4-3.5); Glucose 146 mg/dL (70-105); Osmolality,Calculated 278 (280-300); Sodium 132 mEq/L (136-145); Total Protein 6.3 g/dL (6.4-8.9); eGFR For African Americans > 60 (> 60); eGFR For Non-African Americans > 60 (> 60)
[2020-01-14] MEDS: Ipratropium 1 PUFF INHALER IH SCH ×4 (05:10→22:14)
[2020-01-14] MEDS: *HR* Enoxaparin 40 MG/0.4 ML SYRINGE SQ SCH (06:08)
[2020-01-14] MEDS: Ondansetron ODT 4 MG TAB.RAPDIS SL PRN (06:15)
[2020-01-14] MEDS: cefTRIAXone 1,000 MG in Water for inj. (sterile) 10 ML IVP SCH (09:34)
[2020-01-14] MEDS: Furosemide 40 MG/4 ML VIAL IVP SCH ×2 (09:35→23:15)
[2020-01-14] MEDS: Dexamethasone 10 MG/ML VIAL IVP SCH (09:35)
[2020-01-14] MEDS: Metoprolol 100 MG TABLET PO SCH ×2 (09:36→23:07)
[2020-01-14] MEDS: Isosorbide MONOnitrate (24 HR) 30 MG TAB.ER.24H PO SCH (09:36)
[2020-01-14] MEDS: Aspirin Enteric Coated 81 MG Tablet PO SCH (09:36)
[2020-01-14] MEDS: FLUoxetine 20 MG CAPSULE PO SCH (09:37)
[2020-01-14] MEDS: Insulin LISPRO 300 UNITS/3 ML VIAL SQ SCH ×4 (10:04→23:15)
[2020-01-14] MEDS: Budesonide/Formoterol 160/4.5 1 PUFF INH IH SCH ×2 (10:55→22:14)
[2020-01-14] MEDS: Azithromycin 250 MG TABLET PO SCH (16:19)
[2020-01-14] MEDS: Fluticasone Propionate Nasal 50 MCG/SPRAY BOTTLE NS SCH (16:34)
[2020-01-14] MEDS: Insulin DETEMIR 100 UNIT/ML X5UNITS SQ SCH (23:10)
[2020-01-15] MEDS: Ipratropium 1 PUFF INHALER IH SCH ×3 (04:31→16:12)
[2020-01-15] MEDS: *HR* Enoxaparin 40 MG/0.4 ML SYRINGE SQ SCH (05:39)
[2020-01-15 07:17] LABS: Basophils % 0.2 %; Hematocrit 32.9 % (37.5-50.1); Hemoglobin 11.2 g/dL (12.9-16.9); Immature Granulocytes % 0.7 % (0-4); Lymphocytes # 0.7 K/mcL (0.6-4.6); Lymphocytes % 11.4 %; Mean Corpuscular Hemoglobin 30.7 pg (28.0-33.3); Mean Corpuscular Volume 90.1 fL (83.0-100.0); Mean Platelet Volume 10.6 fL (9.4-12.4); Monocytes # 0.3 K/mcL (0.0-1.3); Monocytes % 4.4 %; Platelet Count 214 K/mcL (140-400); Red Blood Count 3.65 M/mcL (4.19-5.50); Red Cell Distribution Width 12.7 % (11.5-14.5); Segmented Neutrophils % 83.3 %
[2020-01-15 07:37] LABS: BUN/Creatinine Ratio 23 (6-26); Blood Urea Nitrogen 27 mg/dL (8-23); Calcium 8.4 mg/dL (8.6-10.3); Carbon Dioxide 22 mEq/L (23-29); Chloride 100 mEq/L (98-107); Glucose 128 mg/dL (70-105); Osmolality,Calculated 281 (280-300); Potassium 3.7 mEq/L (3.5-5.1); Sodium 132 mEq/L (136-145); eGFR For African Americans > 60 (> 60); eGFR For Non-African Americans > 60 (> 60)
[2020-01-15] MEDS: Insulin LISPRO 300 UNITS/3 ML VIAL SQ SCH ×2 (08:56→12:39)
[2020-01-15] MEDS: Aspirin Enteric Coated 81 MG Tablet PO SCH (08:58)
[2020-01-15] MEDS: Isosorbide MONOnitrate (24 HR) 30 MG TAB.ER.24H PO SCH (08:58)
[2020-01-15] MEDS: Furosemide 40 MG/4 ML VIAL IVP SCH (08:59)
[2020-01-15] MEDS: FLUoxetine 20 MG CAPSULE PO SCH (08:59)
[2020-01-15] MEDS: cefTRIAXone 1,000 MG in Water for inj. (sterile) 10 ML IVP SCH (08:59)
[2020-01-15] MEDS: Metoprolol 100 MG TABLET PO SCH (08:59)
[2020-01-15] MEDS: Fluticasone Propionate Nasal 50 MCG/SPRAY BOTTLE NS SCH (09:00)
[2020-01-15] MEDS: Dexamethasone 10 MG/ML VIAL IVP SCH (09:00)
[2020-01-15] MEDS: Budesonide/Formoterol 160/4.5 1 PUFF INH IH SCH (10:55)
[2020-01-15 11:57] LABS: Mycoplasma pneumoniae IgG 0.71 U/L (<=0.09)
[2020-01-15 12:52] VITALS: BP 113/66
== END 2020-01-15 16:10 | disposition left against medical advice (07) | DRG 871 ==
LOC: EMEROOARM 17:05 → 2NENU 17:05 → SUATTDRO 19:41 → 2NENU 20:21
PROVIDERS: ADMIT Family Medicine; ATTEND Family Medicine